=== PATIENT | female | born 1945 | race Caucasian/White ===

== ENCOUNTER 2016-11-21 15:51 | Inpatient (IN) | payer OTHER, MEDICARE ==
[~2016-11-21] VITALS: Ht 157.5 cm; Wt 47.6 kg
--- NOTE | 2016-11-21 16:58 | ED DYSPNEA/ASTHMA COMPLAINT ---
History of Present Illness General Chief Complaint: General Adult Stated Complaint: SOB Source: patient, family, old records Exam Limitations: no limitations Vital Signs & Intake/Output Vital Signs & Intake/Output Vital Signs Date Time Temp Pulse Resp B/P Pulse O2 O2 Flow FiO2 Ox Delivery Rate 11/21 1819 97.8 110 22 149/91 95 Nasal 2.0L Cannula 11/21 1803 97.0 105 20 162/75 94 Nasal 2.0L Cannula 11/21 1729 94 Nasal 2.0L Cannula 11/21 1609 92 Nasal 3.0L Cannula 11/21 1608 119 32 90 Nasal 3.0L Cannula 11/21 1559 97.3 120 22 143/83 80 Room Air Allergies Coded Allergies: NO KNOWN ALLERGIES (10/20/12) Reconcile Medications Albuterol Sulfate (Ventolin Hfa) 90 MCG HFA.AER.AD 2 PUF INH Q4-6 PRN PRN COPD (Reported) Ascorbate Calcium (Vitamin C) 500 MG TABLET 1 TAB PO DAILY SUPPLEMENT ( Reported) Budesonide/Formoterol Fumarate (Symbicort 160-4.5 Mcg Inhaler) 160 MCG-4.5 MCG/ ACTUATION HFA.AER.AD 2 PUF INH BID COPD (Reported) Calcium Carbonate/Vitamin D3 (Calcium 500 + D Tablet) (Unknown Strength) TABLET (Unknown Dose) PO DAILY SUPPLEMENT (Reported) Diltiazem HCl (Cartia Xt) 120 MG CAP.ER.24H 1 CAP PO DAILY HEART/BP (Reported ) Olanzapine 5 MG TABLET 1 TAB PO QPM MENTAL HEALTH (Reported) Tiotropium [place] (Spiriva) 18 MCG CAP.W.DEV 1 CAP INH DAILY COPD (Reported) Triage Note: PT SENT TO ER BY DR ROSE FOR LOW O2 SAT , PT PALE STATES THAT SHE HAS HAD A NON PRODUCTIVE COUGH . O2 SAT 79% ON RA. AFEBRILE Triage Nurses Notes Reviewed? yes Onset: Last week Duration: week(s):, constant, continues in ED, getting worse Timing: recent history Severity: severe Activities at Onset: rest Prior Episodes/Possible Cause: occasional episodes Modifying Factors: Improves With: rest. Worsens With: movement. Associated Symptoms: cough, loss of appetite, wheezing, weakness LMP (ages 10-50): post menopausal : No Patient currently breastfeeds: No HPI: 10 days prior to admission patient complains of nonproductive cough loss of appetite wheezing increasing weakness. During This time. She had fever chills that are now gone. Currently she denies fever chills nausea vomiting diarrhea abdominal pain chest pain headache dysuria rash bleeding Past History Travel History Traveled to [place] past 21 day No Medical History Any Pertinent Medical History? 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 No Review of Systems Review of Systems Constitutional: Reports: no symptoms. EENTM: Reports: no symptoms. Respiratory: Reports: see HPI, cough, orthopnea, wheezing. Cardiovascular: Reports: no symptoms. GI: Reports: no symptoms. Genitourinary: Reports: no symptoms. Musculoskeletal: Reports: no symptoms. Skin: Reports: no symptoms. Neurological/Psychological: Reports: no symptoms. Hematologic/Endocrine: Reports: no symptoms. Immunologic/Allergic: Reports: no symptoms. All Other Systems: Reviewed and Negative Physical Exam Physical Exam General Appearance: well developed/nourished, alert, awake, anxious, moderate distress, thin Head: atraumatic, normal appearance Eyes: Bilateral: normal appearance, PERRL, EOMI. Ears, Nose, Throat: normal pharynx, normal ENT inspection Neck: normal inspection, supple, full range of motion, no midline tenderness Respiratory: chest non-tender, quiet respiration, decreased breath sounds Cardiovascular: regular rate/rhythm, normal peripheral pulses, norml femoral pulses equa Peripheral Pulses: 4+ carotid (R), 4+ carotid (L) Gastrointestinal: normal bowel sounds, soft, non-tender, no organomegaly Extremities: normal inspection, normal capillary refill, normal range of motion, no edema Neurologic/Psych: no motor/sensory deficits, awake, alert, oriented x 3, normal gait, normal mood/affect, 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 No Severe Sepsis Present: No Septic Shock Present: No Progress Differential Diagnosis: bronchitis, CHF, COPD, pneumonia Plan of Care: Orders Procedure Date/time Status Regular Diet 11/21 D Active OXYGEN SETUP (GEN) 11/21 1801 Active Saline Lock 11/21 180 Active Admit to inpatient 11/21 180 Active Vital Signs 11/21 180 Active Activity/Ambulation 11/21 180 Active Code Status 11/21 180 Active RAPID VIRAL INFLUENZA A 11/21 165 Complete TROPONIN LEVEL 11/21 165 Complete MAGNESIUM 11/21 165 Complete COMPREHENSIVE METABOLIC PANEL 11/21 165 Complete CBC WITHOUT DIFFERENTIAL 11/21 1652 Complete EKG 11/21 165 Active Laboratory Tests 11/21/16 1755: Anion Gap 8, Estimated GFR > 60, BUN/Creatinine Ratio 16.7, Glucose 107 H, Calcium 9.0, Magnesium 1.8, Total Bilirubin 1.0, AST 34, ALT 31, Alkaline Phosphatase 84, Troponin I < 0.01, Total Protein 7.1, Albumin 4.1, Globulin 3.0, Albumin/Globulin Ratio 1.4, CBC w Diff NO MAN DIFF REQ, RBC 3.40 L, MCV 95.8, MCH 31.9 H, RDW 20.5 H, MPV 5.8 L, Gran % 55.1, Lymphocytes % 34.5, Monocytes % 10.4 H, Eosinophils % 0, Basophils % 0 L, Absolute Granulocytes 1.5, Absolute Lymphocytes 0.9 L, Absolute Monocytes 0.3, Absolute Eosinophils 0, Absolute Basophils 0, PUBS MCHC 33.3 Diagnostic Imaging: Viewed by Me: Radiology Read. Discussed w/RAD: Radiology Read. CXR Impression: no acute abnormality Initial ED EKG: normal axis, normal intervals, normal p-waves, normal QRS complex, normal sinus rhythm, no ST T wave changes Prior EKG: unchanged Rhythm Strip: normal sinus rhythm Departure Departure Disposition: STILL A PATIENT Condition: Stable Clinical Impression Primary Impression: COPD with exacerbation Secondary Impressions: Hypoxia Referrals: KRYSTAL MCGUIRE APRN (PCP/Family) Departure Forms: Customer Survey General Discharge Information Admission Note Spoke With: WILIAM ROSARIO MD Documentation of Exam: Documentation of any treatments & extenuating circumstances including Concerns Regarding Discharge (functional status, medication knowledge or non-compliance, living conditions, etc.) that warrant an admission rather than observation: Supplemental oxygen serial beta agonist nebs IV steroids serial lab exam pulmonary evaluation continuing care discharge planning Critical Care Note Critical Care Note Critical Care Time: non-applicable
[2016-11-21] MEDS ORDERED: CARTIA XT120 M1 PO (17:38)
[2016-11-21] MEDS ORDERED: SYMBICORT 16010.2 GM INH (17:38)
[2016-11-21] MEDS ORDERED: OLANZAPINE5 M2 PO (17:38)
[2016-11-21] MEDS ORDERED: VENTOLIN HFA18 GM INH (17:39)
[2016-11-21] MEDS ORDERED: CALCIUM 500 +1 EAC5 PO (17:39)
[2016-11-21] MEDS ORDERED: SPIRIVA18 MCG INH (17:39)
[2016-11-21] MEDS ORDERED: VITAMIN C500 M6 PO (17:40)
--- NOTE | 2016-11-21 17:57 | RADIOLOGY REPORT ---
EXAMINATION: XR PORTABLE CHEST CLINICAL INFORMATION: Shortness of breath. History of COPD. COMPARISON: CT chest 05/22/2016. TECHNIQUE: Portable AP view of the chest was obtained. FINDINGS: The lungs are hyperinflated, without focal airspace consolidation. No pleural effusions or pneumothoraces are identified. Cardiomediastinal contours are within normal limits. Soft tissues are unremarkable. No acute osseous abnormality is identified. IMPRESSION: Radiographic findings suggestive of underlying COPD. Otherwise, no acute pulmonary process.
[2016-11-21 18:02] LABS: ABSOLUTE BASOPHIL COUNT 0 /CUMM (0.0-0.2); ABSOLUTE EOSINOPHIL COUNT 0 /CUMM (0.0-0.7); ABSOLUTE GRANULOCYTE CT 1.5 /CUMM (1.4-6.5); ABSOLUTE LYMPH COUNT 0.9 /CUMM (1.2-3.4); ABSOLUTE MONOCYTE COUNT 0.3 /CUMM (0.10-0.60); BASOPHIL % 0 % (0.0-2.0); EOSINOPHIL % 0 % (0-5); GRANULOCYTE % 55.1 % (42.2-75.2); HEMATOCRIT 32.5 % (37-47); MEAN CORPUSCULAR HGB 31.9 PG (27.0-31.0); MEAN CORPUSCULAR HGB CONC 33.3 G/DL (33.0-37.0); MEAN CORPUSCULAR VOLUME 95.8 FL (81.0-99.0); MEAN PLATELET VOLUME 5.8 FL (7.4-10.4); RBC DISTRIBUTION WIDTH 20.5 % (11.5-14.5)
[2016-11-21 18:26] LABS: PLATELET COUNT 220 /CUMM (130-400)
[2016-11-21 18:27] LABS: WHITE BLOOD CELL COUNT 2.7 /CUMM (4.8-10.8)
--- NOTE | 2016-11-21 20:15 | History & Physical ---
KAILASH YOUSIF,ALYCE 11/21/16 2015: General Information and HPI MD Statement: I have seen and personally examined CECY HICKS and documented this H&P. The patient is a 71 year old F who presented with a patient stated chief complaint of [shortness of breath]. Source of Information: patient Exam Limitations: no limitations History of Present Illness: Patient is a 71-year-old lady who has come to the ED from Dr. Dailey's office with oxygen saturation of 79%. Patient has had 1 week of shortness of breath coughing and wheezing. Patient reports difficulty breathing with activities, accompanied by a nonproductive cough, had fevers but currently denies it. She has no chest pain or palpitation, or leg swelling. Patient previously was able to go up and down the stairs almost 3 times a day and now reports she gets short of breath when she goes from one room to the other. Patient reports loss of appetite and feeling weak. She is independent and lives at home alone with no aid. Denies headache, dizziness, nausea vomiting, abdominal pain, however reports constipation, no urinary changes. Denies shortness of breath while laying down. Hasn't had any sick contacts recently. Patient has a history of COPD not on oxygen at home and was last admitted at [facility] in 2012 for shortness of breath and cough, she has had no admissions since then. She has quit smoking in 1999 after 32 years. Allergies/Medications Allergies: Coded Allergies: NO KNOWN ALLERGIES (10/20/12) Home Med list Albuterol Sulfate (Ventolin Hfa) 90 MCG HFA.AER.AD 2 PUF INH Q4-6 PRN PRN COPD (Reported) Ascorbate Calcium (Vitamin C) 500 MG TABLET 1 TAB PO DAILY SUPPLEMENT ( Reported) Budesonide/Formoterol Fumarate (Symbicort 160-4.5 Mcg Inhaler) 160 MCG-4.5 MCG/ ACTUATION HFA.AER.AD 2 PUF INH BID COPD (Reported) Calcium Carbonate/Vitamin D3 (Calcium 500 + D Tablet) (Unknown Strength) TABLET (Unknown Dose) PO DAILY SUPPLEMENT (Reported) Diltiazem HCl (Cartia Xt) 120 MG CAP.ER.24H 1 CAP PO DAILY HEART/BP (Reported ) Olanzapine 5 MG TABLET 1 TAB PO QPM MENTAL HEALTH (Reported) Tiotropium [place] (Spiriva) 18 MCG CAP.W.DEV 1 CAP INH DAILY COPD (Reported) Past History Travel History Traveled to [place] past 21 day No Medical History Cardiovascular: hypertension Respiratory: COPD Psychiatric: schizophrenia Endocrine: hypothyroidism Blood Disorders: NONE 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 Denies: chills, fever. EENTM: Reports: no symptoms. Cardiovascular: Denies: chest pain, edema, palpitations. Respiratory: Reports: cough, short of breath, wheezing. Denies: orthopnea, sputum production. GI: Denies: abdominal pain, changes in stool. Genitourinary: Reports: no symptoms. Musculoskeletal: Reports: no symptoms. Skin: Reports: no symptoms. Neurological/Psychological: Reports: no symptoms. Hematologic/Endocrine: Reports: bruising. Exam & Diagnostic Data Last 24 Hrs of Vital Signs/I&O Vital Signs Date Time Temp Pulse Resp B/P Pulse O2 O2 Flow FiO2 Ox Delivery Rate 11/21 2300 97.5 107 20 158/86 90 Nasal 2.5L Cannula 11/21 2226 92 Nasal 2.5L Cannula 11/21 2158 100 24 160/80 93 Nasal 2.0L Cannula 11/21 1819 97.8 110 22 149/91 95 Nasal 2.0L Cannula 11/21 1803 97.0 105 20 162/75 94 Nasal 2.0L Cannula 11/21 1729 94 Nasal 2.0L Cannula 11/21 1609 92 Nasal 3.0L Cannula 11/21 1608 119 32 90 Nasal 3.0L Cannula 11/21 1559 97.3 120 22 143/83 80 Room Air Intake & Output 11/22 0800 02 0000 11/21 1600 Intake Total 340 Output Total Balance 340 Intake, IV 100 Intake, Oral 240 Patient 47.627 kg 47.627 kg Weight Physical Exam General Appearance Alert, Oriented X3, Cooperative, Mild Distress Skin No Rashes, No Breakdown, a few areas of bruising on the distal upper extremities, pinctate petechial lesions on the soft palate HEENT Atraumatic, PERRLA, EOMI, Mucous Membr. moist/pink Neck Supple Cardiovascular Regular Rate, Normal S1, Normal S2, No Murmurs Lungs decreased breath sounds, no wheezing or rhonchi, patient appears in respiratory distress and uses accessory muscles while breathing Abdomen Normal Bowel Sounds, Soft, No Tenderness Neurological Normal Speech, Strength at 5/5 X4 Ext, Normal Tone, Sensation Intact, Cranial Nerves 3-12 NL Extremities No Clubbing, No Cyanosis, No Edema, Normal Pulses, No Tenderness/ Swelling Vascular Normal Pulses, Pulses Symmetrical Last 24 Hrs of Labs/Mundo: Laboratory Tests 11/21/162123: Urine Color YEL, Urine Clarity CLEAR, Urine pH 7.0, Ur Specific [place] <= 1.005 , Urine Protein NEG, Urine Ketones TRACE H, Urine Nitrite NEG, Urine Bilirubin NEG, Urine Urobilinogen 0.2, Ur Leukocyte Esterase NEG, Ur Microscopic EXAM NOT REQUIRED, Urine Hemoglobin NEG, Urine Glucose NEG 11/21/162123: Urine Osmolality 136 L, Ur Random Creatinine 23.4, Ur Random Sodium 14 L, Ur Random Potassium 15.5, Fraction Sodium Excret 0.3 11/21/16 1755: Anion Gap 8, Estimated GFR > 60, BUN/Creatinine Ratio 16.7, Glucose 107 H, Serum Osmolality 264 L, Calcium 9.0, Magnesium 1.8, Total Bilirubin 1.0, AST 34 , ALT 31, Alkaline Phosphatase 84, Troponin I < 0.01, Total Protein 7.1, Albumin 4.1, Globulin 3.0, Albumin/Globulin Ratio 1.4, CBC w Diff NO MAN DIFF REQ, RBC 3.40 L, MCV 95.8, MCH 31.9 H, RDW 20.5 H, MPV 5.8 L, Gran % 55.1, Lymphocytes % 34.5, Monocytes % 10.4 H, Eosinophils % 0, Basophils % 0 L, Absolute Granulocytes 1.5, Absolute Lymphocytes 0.9 L, Absolute Monocytes 0.3, Absolute Eosinophils 0, Absolute Basophils 0, PUBS MCHC 33.3 Assessment/Plan Assessment: Patient is a 71 year old lady with a PMH of COPD, schizophrenia, borderline hypertension, who is sent from Dr. Dailey's office due to hypoxia, shortness of breath and cough. she was found to have SO2 of 79% in the office and was sent to the ED. Assessment and plan: Shortness of breath, most likely COPD exacerbation Patient has a history of COPD not on home oxygen follows up with Dr. Dailey every 6 months. Uses Symbicort and Spiriva and Ventolin inhalers at home. CXray shows no acute pulmonary process. Patient is afebrile and WBC 2.7 (chronic and stable leukopenia) Of note, she has a history of intubation in 1999 and being on ventilator for 10 days. * O2 supplementation to keep O2 saturation above 92% * TRC nebs * Continue home inhalers including Symbicort and Spiriva and Ventolin * IV Solu-Medrol * Hold off on antibiotics for now * Sputum culture Hyponatremia Serum osmolality 264 (L) consistent with hypotonic hyponatremia. She appears mildly hypovolemic. urine random sodium 14 (L), FeNa 0.3. Urine osmolality 136 ( L). Etiologies related to our patient include: Volume depletion, hypothyroidism, SIADH (patient takes olanzapine which can cause SIADH). * IV normal saline * Recheck BEP in a.m. * Checked TSH and free T4 Leukopenia Chronic and stable * Monitor WBC count Schizophrenia Currently asymptomatic. * Continue olanzapine * consider consulting psych for switching to another agent if hyponatremia persists History of Hyperthyroidism Status post radiation for diffuse thyroid hyperplasia. currently states that she is euthyroid. * TSH and free T4 Osteoporosis * Continue vitamin D and calcium supplements DVT prophylaxis * Subcutaneous Lovenox Tylenol for mild pain Regular diet Full code As Ranked By This Provider Problem List: 1. COPD with exacerbation 2. Hypoxia 3. Schizophrenia Core Measures/Miscellaneous Acute Coronary Syndrome ACS Diagnosis: No Cerebrovascular Accident CVA/TIA Diagnosis: No Congestive Heart Failure CHF Diagnosis: No Venous Thromboembolism VTE Risk Factors: Acute medical illness, Age > 40 VTE Prophylaxis Ordered Inpt: [facility] d/t: No contraindications No VTE Pharm Prophylaxis d/t: No contraindications VTE Diagnosis: No VTE Type: NONE VTE Confirmed by (Test): NONE Severe Sepsis Severe Sepsis Present: No Septic Shock Septic Shock Present: No Miscellaneous Documentation Attending Case Discussed With: CHRIS [facility]AV[facility]RIA [facility] Primary Care Physician: KRYSTAL MCGUIRE APRN Patient sees these Specialists Dr. Dailey, pulmonary Level of Patient Care: General Medicine MARGARITO HOLBROOK 11/21/162027: Resident Review Statement Resident Statement: examined this patient, discussed with video production intern, agreed with video production intern Other Findings: Patient is 71-year-old female with past medical history significant for non-oxygen dependent COPD, schizophrenia, history of intubation in 1999, hyperthyroidism status post radiation not on any medication, osteoporosis pain from doctor's office due to her hypoxia and cough with shortness of breath and wheezing for 4-5 days. Patient endorses that she was very short of breath lately and was not able to move around the house without getting short of breath when she was at baseline was able to take flight of steps without getting short of breath. She also admitted for having wheezing and being very tired. She denied fever, chills, headache, chest pressure, chest pain, nausea, vomiting or any urinary complaints. She has some constipation at baseline and her appetite was poor and was not eating and drinking enough. She drinks 2 beers daily and last drink was yesterday. She is compliant with her medications and was using her inhalers without any significant relief. Vital signs admission vitals temperature 97.3, pulse 120, respiratory rate 22, blood pressure 143/83 and she was saturating 80% on room air later on was saturating 95% on 2 L of nasal cannula. Initial workup showed WBC count 2.7, hemoglobin 10.8, hematocrit 32.5, platelet count 220, sodium 127, potassium 3.9, chloride 85, carbon dioxide 34, BU and 10, creatinine 0.6, glucose 107, Serum osmolality 264, urine osmolarity 136, urine random sodium 14, fraction sodium excretion 0.3 Chest radiograph it didn't show any evidence of infiltrate or new acute cardiopulmonary pathology EKG showed tachycardia, sinus rhythm with no acute ST-T wave changes Physical examination Alert and oriented 3 in mild distress using accessory muscles Head atraumatic Neck supple Chest auscultation showed restricted air movement Heart S1-S2 normal. No acute sounds Abdomen soft no organomegaly Extremities shows no edema or cyanosis Assessment and plan 71-year-old female with past medical history significant for non- oxygen dependent COPD, hyPERthyroidism status post radiation, schizophrenia came with hypoxia and worsening shortness of breath most likely secondary to COPD exacerbation We'll admit patient on general medical floor and will take it for the following problems Problem #1 hypoxia with worsening shortness of breath most likely due to COPD extirpation no radiological evidence of pneumonia Vital signs every shift Supplemental oxygen to keep oxygen saturation more than 90% We will trend WBCs has she has leukopenia at baseline of unknown significance TRC and embolization IV Solu-Medrol 40 mg every [address] Dailey consultation in the morning Problem #2 hyponatremia most likely hypovolemic hyponatremia due to dehydration/ poor oral intake Normal saline at rate 150 miles per hour and we will recheck labs in the morning Problem #3 history of schizophrenia We will continue her home medications History of hypertension We will continue her home dose of diltiazem Pharmacological DVT prophylaxis Regular diet Patient is full code DEON YOUSIF, [facility] 11/21/162057: Attending MD Review Statement Attending Statement Attending MD Statement: examined this patient, discuss w/resident/PA/COOLING ROOM ATTENDANT Attending Assessment/Plan: 71 yo F with h/o COPD with h/o intubation (1999), schizophrenia, hypothyroidism s/p radiation to diffuse thyroid hyperplasia, osteoporosis, HTN, tachycardia, is sent in from Dr. Martin's office for evaluation of hypoxia (sats 79% on RA). Patient reports symptoms of dry cough and wheezing since about 10 days, with no relief with OTC cough syrup or inhalers. Exertional dyspnea+. Weakness and loss of appetite+. No sick contacts. Received flu and pneumonia vaccine last year. Vitals: afebrile, tachycardic, BP 158/86, sats 80% RA --> 92% on 3L. Exam: AAO, in mild respiratory distress, able tos peak in full sentences, Dry mucous membranes, Neck supple, Chest b/l reduced air entry with scattered expiratory wheeze, Heart S1S2 tachycardic. Extremities no edema. Labs: WBC 2.7, Na 127 ( baseline 138-140), bicarb 34, trop neg, EKG: Sinus tachycardia. CXR: COPD, no pneumonia. PFT (2010): severe obstructive lung disease with airtrapping and hyperinflation. Flu swab negative. 1. Acute hypoxic respiratory failure, COPD exacerbation. GM admit, TRC nebs, sputum culture, IV steroids, no need for azithromycin. Keep O2 sats > 92%. Pulm consult Dr. Martin. 2. Hyponatremia likely hypovolemic, however cannot rule out SIADH in the setting of medication use (olanzapine). Check urine and serum osmolality, urine lytes. Gentle hydration, trend sodium. DVT ppx Lovenox. Full code.
--- NOTE | 2016-11-21 20:58 | Admission Certification ---
Admission Certification Certification Statement - As attending physician, I certify that at the time of - admission, based on clinical presentation, severity of - symptoms, need for further diagnostic testing and - therapeutic interventions, and risk of adverse outcomes - without in-hospital treatment, in my clinical assessment, - this patient requires an acute hospital stay for a minimum - of two nights or longer. I have also considered psychsocial - factors such as support system, advanced age, financial - issues, cognitive issues, and failed out-patient treatments, - past re-admission history, safety of patient, and lack of - compliance as applicable. Specific rationale supporting this admission is: Acute hypoxic respiratory failure, COPD exacerbation.
[2016-11-21 23:00] VITALS: BP 158/86
[2016-11-22 07:32] VITALS: BP 120/70
--- NOTE | 2016-11-22 08:08 | Cons- Pulmonary ---
General Information and HPI Consulting Request Date of Consult: 11/22/16 Requested By: bismark Reason for Consult: Hypoxic respiratory failure History of Present Illness: Patient is 71-year-old woman with severe COPD admitted with hypoxic respiratory failure and increasing shortness of breath due to COPD exacerbation. Patient has had increasing congestion and cough shortness breath over the past week without fevers or chills. In the office yesterday she was hypoxic and admitted for exacerbation of COPD hypoxic respiratory failure. She feels improved this morning on supplemental nasal oxygen. Allergies/Medications Allergies: Coded Allergies: NO KNOWN ALLERGIES (10/20/12) Home Med List: Albuterol Sulfate (Ventolin Hfa) 90 MCG HFA.AER.AD 2 PUF INH Q4-6 PRN PRN COPD (Reported) Ascorbate Calcium (Vitamin C) 500 MG TABLET 1 TAB PO DAILY SUPPLEMENT ( Reported) Budesonide/Formoterol Fumarate (Symbicort 160-4.5 Mcg Inhaler) 160 MCG-4.5 MCG/ ACTUATION HFA.AER.AD 2 PUF INH BID COPD (Reported) Calcium Carbonate/Vitamin D3 (Calcium 500 + D Tablet) (Unknown Strength) TABLET (Unknown Dose) PO DAILY SUPPLEMENT (Reported) Diltiazem HCl (Cartia Xt) 120 MG CAP.ER.24H 1 CAP PO DAILY HEART/BP (Reported ) Olanzapine 5 MG TABLET 1 TAB PO QPM MENTAL HEALTH (Reported) Tiotropium [place] (Spiriva) 18 MCG CAP.W.DEV 1 CAP INH DAILY COPD (Reported) Review of Systems Review of Systems Constitutional: Denies: chills, fever. Cardiovascular: Denies: chest pain, peripheral edema. Respiratory: Reports: cough, short of breath. Denies: hemoptysis, sputum production. GI: Denies: abdominal pain, diarrhea, melena. Genitourinary: Denies: dysuria. 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 Home Services at Home: None Smoking Status: Former Smoker (quit in 1999) ETOH Use: 2 beers a day Illicit Drug Use: denies illicit drug use Exam & Diagnostic Data Last 24 Hrs of Vital Signs/I&O Vital Signs Date Time Temp Pulse Resp B/P Pulse O2 O2 Flow FiO2 Ox Delivery Rate 11/22 0732 97.7 102 20 120/70 94 Nasal 3.0L Cannula 11/22 0000 Nasal 2.5L Cannula 11/21 2300 97.5 107 20 158/86 90 Nasal 2.5L Cannula 11/21 2226 92 Nasal 2.5L Cannula 11/21 2158 100 24 160/80 93 Nasal 2.0L Cannula 11/21 1819 97.8 110 22 149/91 95 Nasal 2.0L Cannula 11/21 1803 97.0 105 20 162/75 94 Nasal 2.0L Cannula 11/21 1729 94 Nasal 2.0L Cannula 11/21 1609 92 Nasal 3.0L Cannula 11/21 1608 119 32 90 Nasal 3.0L Cannula 11/21 1559 97.3 120 22 143/83 80 Room Air Intake & Output 11/22 1600 11/22 0800 11/22 0000 Intake Total 1000 460 Output Total Balance 1000 460 Intake, IV 800 100 Intake, Oral 200 360 Patient 105 lb Weight Patient is comfortable oxygen saturation on 3 L 94% exam for chest shows diminished breath sounds there are no wheezes cardiac exam shows regular S1 and S2 without murmurs abdominal exam soft nontender extremities without edema Last 48 Hrs of Labs/Mundo: Laboratory Tests 11/22/16 0640: Sodium Pending, Potassium Pending, Chloride Pending, Carbon Dioxide Pending, Anion Gap Pending, BUN Pending, Creatinine Pending, BUN/Creatinine Ratio Pending , CBC w Diff Pending, WBC Pending, RBC Pending, Hgb Pending, Hct Pending, MCV Pending, MCH Pending, RDW Pending, Plt Count Pending, MPV Pending, PUBS MCHC Pending 11/21/162123: Urine Color YEL, Urine Clarity CLEAR, Urine pH 7.0, Ur Specific [place] <= 1.005 , Urine Protein NEG, Urine Ketones TRACE H, Urine Nitrite NEG, Urine Bilirubin NEG, Urine Urobilinogen 0.2, Ur Leukocyte Esterase NEG, Ur Microscopic EXAM NOT REQUIRED, Urine Hemoglobin NEG, Urine Glucose NEG 11/21/162123: Urine Osmolality 136 L, Ur Random Creatinine 23.4, Ur Random Sodium 14 L, Ur Random Potassium 15.5, Fraction Sodium Excret 0.3 11/21/16 1755: Anion Gap 8, Estimated GFR > 60, BUN/Creatinine Ratio 16.7, Glucose 107 H, Serum Osmolality 264 L, Calcium 9.0, Magnesium 1.8, Total Bilirubin 1.0, AST 34 , ALT 31, Alkaline Phosphatase 84, Troponin I < 0.01, Total Protein 7.1, Albumin 4.1, Globulin 3.0, Albumin/Globulin Ratio 1.4, CBC w Diff NO MAN DIFF REQ, RBC 3.40 L, MCV 95.8, MCH 31.9 H, RDW 20.5 H, MPV 5.8 L, Gran % 55.1, Lymphocytes % 34.5, Monocytes % 10.4 H, Eosinophils % 0, Basophils % 0 L, Absolute Granulocytes 1.5, Absolute Lymphocytes 0.9 L, Absolute Monocytes 0.3, Absolute Eosinophils 0, Absolute Basophils 0, PUBS MCHC 33.3 Assessment/Plan Impression/Plan: 71-year-old with severe COPD presents with exacerbation and hypoxic respiratory failure which appears to be improving. Her lung cancer screening CAT scan of May 2016 showed a nodule for which follow-up CT scan is required. Recommendations: Continue IV Solu-Medrol nebs and supplemental oxygen. Would hope to transition to by mouth prednisone tomorrow with expectation that she will likely need home O2. Repeat CT scan of the chest. With elevated bicarbonate would obtain arterial blood gas once oxygen has been titrated Consult Acknowledgment - Thank you for your consult request.
[2016-11-22 08:21] LABS: HEMATOCRIT 30.5 % (37-47); MEAN CORPUSCULAR HGB 32.1 PG (27.0-31.0); MEAN CORPUSCULAR HGB CONC 33.2 G/DL (33.0-37.0); MEAN CORPUSCULAR VOLUME 96.7 FL (81.0-99.0); MEAN PLATELET VOLUME 6.1 FL (7.4-10.4); PLATELET COUNT 197 /CUMM (130-400); RBC DISTRIBUTION WIDTH 20.6 % (11.5-14.5); RED BLOOD CELL CT 3.16 /CUMM (4.20-5.40)
--- NOTE | 2016-11-22 12:55 | PN- Housestaff ---
Subjective Follow-up For: Acute exacerbation of COPD Subjective: She is seen and examined bedside. She states that her breathing is much better compared to yesterday. She does not endorse any additional acute complaints including chest pain, palpitation, fever, chills, nausea, vomiting, increased cough, abdominal pain or dysuria. No acute overnight event reported by nursing staff. O2 was titrated from 3-2 and patient tolerated with above goal saturation levels. Review of Systems Constitutional: Reports: no symptoms. Objective Last 24 Hrs of Vital Signs/I&O Vital Signs Date Time Temp Pulse Resp B/P Pulse O2 O2 Flow FiO2 Ox Delivery Rate 11/23 612 98.5 91 22 118/76 94 Nasal Cannula 11/23 0000 94 Nasal 1.0L Cannula 11/22 2132 98.9 11/22 2130 95.7 98 22 122/80 94 Nasal 1.0L Cannula 11/22 1835 92 Nasal 1.0L Cannula 11/22 1600 Nasal 1.0L Cannula 11/22 1434 97.4 98 20 120/80 91 11/22 1137 Nasal 2.0L Cannula 11/22 0800 95 Nasal 2.0L Cannula 11/22 0732 97.7 102 20 120/70 94 Nasal 3.0L Cannula Intake & Output 11/23 0800 11/23 0000 11/22 1600 Intake Total 150 800 500 Output Total Balance 150 800 500 Intake, Oral 150 800 500 Number 1 Bowel Movements Patient 47.627 kg Weight Physical Exam General Appearance: Alert, Oriented X3, Cooperative Skin: No Significant Lesion Lungs: VERY FAINT WHEEZING BILATERALLY Abdomen: Normal Bowel Sounds, Soft, No Tenderness Neurological: Normal Speech, Strength at 5/5 X4 Ext, Normal Tone, Sensation Intact Extremities: No Clubbing, No Cyanosis, No Edema Assessment/Plan Assessment: Is a 71-year-old pleasant lady with a past medical history of moderate to severe COPD is presenting with acute respiratory failure and symptoms and signs suggestive of acute exacerbation of COPD (progressive dyspnea, increased cough, sputum production). Assessment and plan #Acute respiratory failure This is in the setting of exacerbation of COPD. Patient most likely will require home oxygen on discharge. O2 was titrated down from 3-2 and patient was able to tolerate well. We'll assess ambulation sats level on discharge date to determine O2 home levels. Plan Continue to supplementation with goals of >90% sat #Acute exacerbation of COPD Patient's respiratory status is progressively getting better. CT chest was unremarkable for any acute pathology other than signs of COPD. Plan Will switch on a Medrol IV to oral meds today. We'll continue her azithromycin 500 mg daily. #Leukopenia Patient does endorse a history of leukopenia however precipitous drop froM wbc 3 to 1 is concerning. Possible etiology include drug-induced and bone marrow pathology. Plan Will switch patient to neutropenic precaution. Even though patient is currently not neutropenic, in the setting of acute exacerbation of COPD, and a significant drop in the white count, it was felt that we should proceed with neutropenic precautions for at least 24 hours. Also obtain hematology consultation #Hyponatremia Most likely was hypovolemic hyponatremia which is now resolving. Problem List: 1. COPD with exacerbation 2. Neutropenia 3. Hypoxia Pain Ratin Pain Location: none Pain Goal: Remain pain free Pain Plan: Acetaminophen for mild pain Oxycodone for moderate pain Tomorrow's Labs & Rationales: BEP-trending hyponatremia CBC-trending leukopenia
[2016-11-22 14:34] VITALS: BP 120/80
--- NOTE | 2016-11-22 14:54 | CT SCAN REPORT ---
EXAMINATION: CT CHEST WITHOUT CONTRAST CLINICAL INFORMATION: Acute hypoxic respiratory failure. COPD. COMPARISON: Chest x-ray 11/21/[address] scan of the chest 05/22/2016. TECHNIQUE: Multidetector volumetric CT imaging of the chest was done. Axial MIP volume rendering provided. Sagittal and coronal reformatted images were obtained. 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 LUNGS: The lung dahl are well expanded bilaterally, and display [id number] centrilobular emphysematous changes. The right bronchus intermedius is unchanged. There are linear areas of opacity at the bases consistent with atelectasis. There has been interval decrease in the nodule in the lingula, now measuring 0.3 cm (image 233/520). The 0.2 cm nodule in the right upper lobe (image 82/520) is unchanged. The cystic area with thickened orellana and noncalcified 0.3 cm nodule in the left upper lobe is unchanged (image 149/520). MEDIASTINUM: The visualized thyroid gland is unremarkable. There are atheromatous calcifications of the aorta. The root of the aorta has a caliber of 3.7 cm. There is no mediastinal or hilar lymphadenopathy; there are small lymph nodes which appear relatively stable. There is no pericardial effusion. PLEURA: There are no pericardial effusions and there is no pleural thickening. AXILLA: There is no axillary lymphadenopathy and the chest wall appears normal. UPPER ABDOMEN: There has been no interval change in the cystic area in the left lobe of the liver in segment 4. There is a 1.9 cm cyst toward the upper pole of the left kidney, unchanged. The left adrenal gland nodule is unchanged, with Hounsfield units of 9.8. There are multiple calcifications in the pancreas. These appear unchanged. OSSEOUS STRUCTURES: There are multilevel degenerative changes in the spine. There are no suspicious lucent or sclerotic foci. IMPRESSION: 1. The study redemonstrates the changes consistent with COPD in both lungs. 2. There is been slight interval decrease in the size of the nodule in the lingula compared to the prior study. 3. The other lung nodules appear relatively stable. 4. Stable areas of low attenuation in the liver and left kidney consistent with cysts. 5. Stable nodularity in the left adrenal gland with Hounsfield units consistent with an adenoma. 6. Pancreatic calcifications are consistent with chronic pancreatitis, demonstrated on prior imaging.
--- NOTE | 2016-11-22 15:46 | PN- Att Addend ---
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 d/w pt the care plan. COPD exacerbation- cont current management, Added zithromax given the patients neutropenia with ANC of 620 and being on steroids. Neutropenia with low ANC- will get hemaotology consult and will put patient on neutropenic precautions. Hypoxic respiratory failure secondary to copd exacerbation. will cont current managemetn. d/w pt the care plan.
--- NOTE | 2016-11-22 17:20 | Cons- Hematology ---
General Information and HPI Consulting Request Date of Consult: 11/22/16 Requested By: MURPHY GALLEGOS MD Reason for Consult: Neutropenia Source of Information: patient, old records Exam Limitations: no limitations History of Present Illness: Ms. Zimmerman is a 71-year-old female with with COPD and schizophrenia on olanzapine who presented to the hospital after noted to be hypoxic (O2 of 79%) in Dr. Nuñze's office. She has been having worsening dyspnea and coughing for the past 1 week. Her cough is nonproductive. She has not had any fever or chills. She has been more weak recently. She denies any new pain. She has no dizziness or headaches. She denies any nausea or vomiting. She denies any significant sick contact. Since admission, she has been started on oxygen and Solu-Medrol. She was given IVF for hyponatremia. She was continued on her home inhaler. She was started on azithromycin. On admission, she had a WBC of 2.7. This has been relatively stable for her. Her WBC decreased to 1.0 this morning. She did get fluid on admission. She states she has had low WBC prior. Of note, she has severe schizophrenia and is on olanzapine. Allergies/Medications Allergies: Coded Allergies: NO KNOWN ALLERGIES (10/20/12) Home Med List: Albuterol Sulfate (Ventolin Hfa) 90 MCG HFA.AER.AD 2 PUF INH Q4-6 PRN PRN COPD (Reported) Ascorbate Calcium (Vitamin C) 500 MG TABLET 1 TAB PO DAILY SUPPLEMENT ( Reported) Budesonide/Formoterol Fumarate (Symbicort 160-4.5 Mcg Inhaler) 160 MCG-4.5 MCG/ ACTUATION HFA.AER.AD 2 PUF INH BID COPD (Reported) Calcium Carbonate/Vitamin D3 (Calcium 500 + D Tablet) (Unknown Strength) TABLET (Unknown Dose) PO DAILY SUPPLEMENT (Reported) Diltiazem HCl (Cartia Xt) 120 MG CAP.ER.24H 1 CAP PO DAILY HEART/BP (Reported ) Olanzapine 5 MG TABLET 1 TAB PO QPM MENTAL HEALTH (Reported) Tiotropium [place] (Spiriva) 18 MCG CAP.W.DEV 1 CAP INH DAILY COPD (Reported) Current Medications: Current Medications Sig/Megan Start time Last Medication Dose Route Stop Time Status Admin Acetaminophen 650 MG Q6P PRN 11/21 2300 AC PO Albuterol Sulfate 3 ML Q4H PRN 11/22 1200 AC INH Albuterol Sulfate 2 PUF Q4-6 PRN PRN 11/21 2315 AC INH Azithromycin 500 MG DAILY 11/22 1148 AC 11/22 PO 11/24 1001 1303 Azithromycin 500 MG ONCE ONE 11/21 2100 CAN Dextrose/Water 250 ML IV 11/21 2159 Budesonide/ 2 PUF BID 11/21 2304 AC 11/22 Formoterol Fumarate INH 0922 Diltiazem HCl 120 MG DAILY 11/22 1000 AC 11/22 PO 0922 Enoxaparin Sodium 40 MG DAILY 11/22 1000 AC 11/22 SC 0921 Ibuprofen 600 MG Q6P PRN 11/21 2300 AC PO Melatonin 5 MG AT BEDTIME 11/22 2200 DC PO Melatonin 5 MG AT BEDTIME 11/22 0045 AC 11/22 PO 0039 Methylprednisolone 40 MG Q8 11/22 0600 AC 11/22 IV 1303 Methylprednisolone 0 .STK-MED ONE 11/21 1800 DC .ROUTE Olanzapine 5 MG QPM 11/22 2200 DC PO Olanzapine 5 MG QPM 11/21 2330 AC 11/22 PO 0006 Oxycodone HCl 10 MG Q6P PRN 11/21 2300 AC PO Patient Medication 1 ED .STK-MED ONE 11/22 1401 DC Teaching ED 11/22 1402 Senna/Docusate Sodium 2 TAB DAILY PRN 11/21 2315 AC PO Sodium Chloride 1,000 ML Q10H 11/21 2115 DC 11/21 IV 11/22 0714 2135 Tiotropium [place] 1 PUF DAILY 11/22 1000 AC 11/22 INH 0922 Review of Systems Review of Systems Constitutional: Denies: chills, fever. Cardiovascular: Reports: orthopena. Denies: chest pain, edema, syncope. Respiratory: Reports: cough, short of breath, wheezing. Denies: hemoptysis, sputum production, stridor. GI: Denies: abdominal pain, constipation, diarrhea, bloody stool, vomiting. Genitourinary: Denies: dysuria. Musculoskeletal: Denies: back pain, neck pain. Skin: Denies: rash. Neurological/Psychological: Denies: anxiety, confusion. Hematologic/Endocrine: Denies: bruising, bleeding. Immunologic/Allergic: Denies: splenectomy, lymphadenopathy. 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 Home Services at Home: None Smoking Status: Former Smoker (quit in 1999) ETOH Use: 2 beers a day Illicit Drug Use: denies illicit drug use Exam & Diagnostic Data Vital Signs and I&O Vital Signs Date Time Temp Pulse Resp B/P Pulse O2 O2 Flow FiO2 Ox Delivery Rate 11/22 1434 97.4 98 20 120/80 91 11/22 1137 Nasal 2.0L Cannula 11/22 0800 95 Nasal 2.0L Cannula 11/22 0732 97.7 102 20 120/70 94 Nasal 3.0L Cannula 11/22 0000 Nasal 2.5L Cannula 11/21 2300 97.5 107 20 158/86 90 Nasal 2.5L Cannula 11/21 2226 92 Nasal 2.5L Cannula 11/21 2158 100 24 160/80 93 Nasal 2.0L Cannula 11/21 1819 97.8 110 22 149/91 95 Nasal 2.0L Cannula 11/21 1803 97.0 105 20 162/75 94 Nasal 2.0L Cannula 11/21 1729 94 Nasal 2.0L Cannula Intake & Output 11/22 1600 08 0800 11/22 0000 Intake Total 500 1000 460 Output Total Balance 500 1000 460 Intake, IV 800 100 Intake, Oral 500 200 360 Number 1 Bowel Movements Patient 47.627 kg 47.627 kg Weight Physical Exam General Appearance: well developed/nourished, no apparent distress, alert, awake , comfortable Head: atraumatic, normal appearance Eyes: Bilateral: PERRL. Ears, Nose, Throat: normal pharynx, on NC Neck: normal inspection, supple Respiratory: chest non-tender, quiet respiration, decreased breath sounds (at bases) Cardiovascular: normal peripheral pulses, tachycardia Gastrointestinal: normal bowel sounds, soft, non-tender, no organomegaly Back: normal inspection Extremities: normal inspection, no edema Neurologic/Psych: awake, alert, oriented x 3 Cranial Nerves: normal hearing, normal speech Skin: warm/dry Lymphatic: no anterior cervical rubia Last 48 Hours of Lab Results: Laboratory Tests 11/22 11/21 0640 2124 Chemistry Sodium (137 - 145 mmol/L) 132 L Potassium (3.5 - 5.1 mmol/L) 4.3 Chloride (98 - 107 mmol/L) 94 L Carbon Dioxide (22 - 30 mmol/L) 30 Anion Gap (5 - 16) 7 BUN (7 - 17 mg/dL) 6 L Creatinine (0.5 - 1.0 mg/dL) 0.5 Estimated GFR (>60 ml/min) > 60 BUN/Creatinine Ratio (7 - 25 %) 12.0 Hematology CBC w Diff MAN DIFF ORDERED WBC (4.8 - 10.8 /CUMM) 1.0 *L RBC (4.20 - 5.40 /CUMM) 3.16 L Hgb (12.0 - 16.0 G/DL) 10.1 L Hct (37 - 47 %) 30.5 L MCV (81.0 - 99.0 FL) 96.7 MCH (27.0 - 31.0 PG) 32.1 H RDW (11.5 - 14.5 %) 20.6 H Plt Count (130 - 400 /CUMM) 197 MPV (7.4 - 10.4 FL) 6.1 L Segmented Neutrophils (42.2 - 75.2 %) 62 Lymphocytes (20.5 - 51.1 %) 36 Monocytes (1.7 - 9.3 %) 2 Platelet Estimate (ADEQUATE) ADEQUATE Polychromasia 2+ Hypochromic-Microcytic 1+ Poikilocytosis 1+ Anisocytosis 2+ PUBS MCHC (33.0 - 37.0 G/DL) 33.2 Urines Urine Color (YEL,AMB,STR) YEL Urine Clarity (CLEAR) CLEAR Urine pH (5.0 - 8.0) 7.0 Ur Specific [place] (1.001 - 1.035) <= 1.005 Urine Protein (NEG,<30 MG/DL) NEG Urine Ketones (NEG) TRACE H Urine Nitrite (NEG) NEG Urine Bilirubin (NEG) NEG Urine Urobilinogen (0.1 - 1.0 EU/dl) 0.2 Ur Leukocyte Esterase (NEG) NEG Ur Microscopic EXAM NOT REQUIRED Urine Hemoglobin (NEG) NEG Urine Glucose (N MG/DL) NEG 11/21 11/21 2124 1755 Chemistry Sodium (137 - 145 mmol/L) 127 L Potassium (3.5 - 5.1 mmol/L) 3.9 Chloride (98 - 107 mmol/L) 85 L Carbon Dioxide (22 - 30 mmol/L) 34 H Anion Gap (5 - 16) 8 BUN (7 - 17 mg/dL) 10 Creatinine (0.5 - 1.0 mg/dL) 0.6 Estimated GFR (>60 ml/min) > 60 BUN/Creatinine Ratio (7 - 25 %) 16.7 Glucose (65 - 99 mg/dL) 107 H Serum Osmolality (285 - 295 MOSM/KG) 264 L Calcium (8.4 - 10.2 mg/dL) 9.0 Magnesium (1.6 - 2.3 mg/dL) 1.8 Total Bilirubin (0.2 - 1.3 mg/dL) 1.0 AST (14 - 36 U/L) 34 ALT (9 - 52 U/L) 31 Alkaline Phosphatase (<127 U/L) 84 Troponin I (< 0.11 ng/ml) < 0.01 Total Protein (6.3 - 8.2 g/dL) 7.1 Albumin (3.5 - 5.0 g/dL) 4.1 Globulin (1.9 - 4.2 gm/dL) 3.0 Albumin/Globulin Ratio (1.1 - 2.2 %) 1.4 Hematology CBC w Diff NO MAN DIFF REQ WBC (4.8 - 10.8 /CUMM) 2.7 L RBC (4.20 - 5.40 /CUMM) 3.40 L Hgb (12.0 - 16.0 G/DL) 10.8 L Hct (37 - 47 %) 32.5 L MCV (81.0 - 99.0 FL) 95.8 MCH (27.0 - 31.0 PG) 31.9 H RDW (11.5 - 14.5 %) 20.5 H Plt Count (130 - 400 /CUMM) 220 MPV (7.4 - 10.4 FL) 5.8 L Gran % (42.2 - 75.2 %) 55.1 Lymphocytes % (20.5 - 51.1 %) 34.5 Monocytes % (1.7 - 9.3 %) 10.4 H Eosinophils % (0 - 5 %) 0 Basophils % (0.0 - 2.0 %) 0 L Absolute Granulocytes (1.4 - 6.5 /CUMM) 1.5 Absolute Lymphocytes (1.2 - 3.4 /CUMM) 0.9 L Absolute Monocytes (0.10 - 0.60 /CUMM) 0.3 Absolute Eosinophils (0.0 - 0.7 /CUMM) 0 Absolute Basophils (0.0 - 0.2 /CUMM) 0 PUBS MCHC (33.0 - 37.0 G/DL) 33.3 Urines Urine Osmolality (300 - 1000 MOSM/KG) 136 L Ur Random Creatinine (mg/dL) 23.4 Ur Random Sodium (30 - 90 mmol/L) 14 L Ur Random Potassium (mmol/L) 15.5 Fraction Sodium Excret (<1% %) 0.3 Imaging/Other Studies: Chest CT 11/22/2016: 1. The study redemonstrates the changes consistent with COPD in both lungs. 2. There is been slight interval decrease in the size of the nodule in the lingula compared to the prior study. 3. The other lung nodules appear relatively stable. 4. Stable areas of low attenuation in the liver and left kidney consistent with cysts. 5. Stable nodularity in the left adrenal gland with Hounsfield units consistent with an adenoma. 6. Pancreatic calcifications are consistent with chronic pancreatitis, demonstrated on prior imaging. Assessment/Plan Assessment: Ms. Zimmerman is a 71-year-old female with COPD and schizophrenia who presents to the hospital with likely COPD exacerbation. She is now on oxygen, steroid, and antibiotics. She was noted to have a leukopenia on admission but was relatively stable since December 2015. She was noted to have worsening ANC this morning with WBC of 1.0. One of the most common causes of neutropenia is medication. Olanzapine, like clozapine, has the potential to cause agranulocytosis. This medication has been stopped. The use of olanzapine is likely the etiology for her worsening neutropenia. Viral infectiou may also cause this worsening leukopenia. I would continue to hold olanzapine and see how the patient's CBC changes. She will likely need psychiatry input into changing this medication given her schizophrenia history. I would hold off on GCSF support until fever or persistent severe neutropenia. Recommendations: 1. Hold olanzapine 2. Consult psychiatry for replacement of her olanzapine 3. Monitor ANC 4. No need for filgastrim at the moment Problem List: 1. Schizophrenia 2. COPD with exacerbation 3. Neutropenia Other Findings/Comments: Please call [phone] with any questions or concerns. Consult Acknowledgment - Thank you for your consult request.
[2016-11-22 21:30] VITALS: BP 122/80
[2016-11-23 06:13] VITALS: BP 118/76
--- NOTE | 2016-11-23 08:34 | PN- Pulmonary ---
Subjective HPI/Critical Care Issues: Patient shortness breath is markedly improved Objective Current Medications: Current Medications Sig/Megan Start time Last Medication Dose Route Stop Time Status Admin Acetaminophen 650 MG Q6P PRN 11/21 2300 AC PO Albuterol Sulfate 3 ML Q4H PRN 11/22 1200 AC INH Albuterol Sulfate 2 PUF Q4-6 PRN PRN 11/21 2315 AC INH Azithromycin 500 MG DAILY 11/22 1148 AC 11/22 PO 11/24 1001 1303 Budesonide/ 2 PUF BID 11/21 2304 AC 11/22 Formoterol Fumarate INH 2300 Diltiazem HCl 120 MG DAILY 11/22 1000 AC 11/22 PO 0922 Enoxaparin Sodium 40 MG DAILY 11/22 1000 AC 11/22 SC 0921 Ibuprofen 600 MG Q6P PRN 11/21 2300 AC PO Melatonin 5 MG AT BEDTIME 11/22 0045 AC 11/22 PO 2157 Methylprednisolone 40 MG Q8 11/22 0600 DC 11/23 IV 0542 Olanzapine 5 MG QPM 11/21 2330 DC 11/22 PO 0006 Oxycodone HCl 10 MG Q6P PRN 11/21 2300 AC PO Patient Medication 1 ED .STK-MED ONE 11/22 1401 NE Teaching ED 11/22 1402 Prednisone 40 MG DAILY 11/23 1000 AC PO Senna/Docusate Sodium 2 TAB DAILY PRN 11/21 2315 AC PO Tiotropium [place] 1 PUF DAILY 11/22 1000 AC 11/22 INH 0922 Vital Signs & I&O Last 24 Hrs of Vitals and I&O: Vital Signs Date Time Temp Pulse Resp B/P Pulse O2 O2 Flow FiO2 Ox Delivery Rate 11/23 612 98.5 91 22 118/76 94 Nasal Cannula 11/23 0000 94 Nasal 1.0L Cannula 11/22 2131 98.9 11/22 2130 95.7 98 22 122/80 94 Nasal 1.0L Cannula 11/22 1835 92 Nasal 1.0L Cannula 11/22 1600 Nasal 1.0L Cannula 11/22 1434 97.4 98 20 120/80 91 11/22 1137 Nasal 2.0L Cannula Intake & Output 11/23 1600 11/23 0800 11/23 0000 Intake Total 150 800 Output Total Balance 150 800 Intake, Oral 150 800 Since saturation 1 L 94% exam for chest shows diminished breath sounds are no wheezes or crackles cardiac exam shows regular S1 and S2 without murmurs CT scan shows decrease in size of pulmonary nodule and COPD Impression/Plan Impression/Plan Impression/Plan: 71-year-old with severe COPD presents with exacerbation and hypoxic respiratory failure which appears to be improving. Repeat CT scan shows no worrisome nodules Recommendations: Begin prednisone taper. Assess oxygen saturation on 1 L with ambulation. Anticipate discharge
[2016-11-23 08:57] LABS: ABSOLUTE BASOPHIL COUNT 0 /CUMM (0.0-0.2); ABSOLUTE EOSINOPHIL COUNT 0 /CUMM (0.0-0.7); ABSOLUTE GRANULOCYTE CT 1.5 /CUMM (1.4-6.5); ABSOLUTE LYMPH COUNT 0.8 /CUMM (1.2-3.4); ABSOLUTE MONOCYTE COUNT 0.2 /CUMM (0.10-0.60); BASOPHIL % 0 % (0.0-2.0); RED BLOOD CELL CT 3.21 /CUMM (4.20-5.40)
[2016-11-23 09:20] LABS: EOSINOPHIL % 0 % (0-5); GRANULOCYTE % 60.9 % (42.2-75.2); HEMATOCRIT 31.1 % (37-47); MEAN CORPUSCULAR HGB 31.9 PG (27.0-31.0); MEAN CORPUSCULAR HGB CONC 32.9 G/DL (33.0-37.0); MEAN CORPUSCULAR VOLUME 96.9 FL (81.0-99.0); MEAN PLATELET VOLUME 6.2 FL (7.4-10.4); PLATELET COUNT 225 /CUMM (130-400); RBC DISTRIBUTION WIDTH 20.7 % (11.5-14.5)
[2016-11-23 09:32] LABS: WHITE BLOOD CELL COUNT 2.5 /CUMM (4.8-10.8)
--- NOTE | 2016-11-23 10:10 | PN- Hematology ---
Subjective Subjective: Her breathing is improve. She denies any new symptoms. Review of Systems: Constitutional: Denies: chills, fever. Cardiovascular: Denies: chest pain, edema, syncope. Respiratory: Reports: cough, short of breath. GI: Denies: abdominal pain, constipation, diarrhea, bloody stool, vomiting. Genitourinary: Denies: dysuria. Musculoskeletal: Denies: back pain, neck pain. Skin: Denies: rash. Neurological/Psychological: Denies: anxiety, confusion. Hematologic/Endocrine: Denies: bruising, bleeding. Immunologic/Allergic: Denies: splenectomy, lymphadenopathy. All Other Systems: Reviewed and Negative Objective Vital Signs and I&Os Vital Signs Date Time Temp Pulse Resp B/P Pulse O2 O2 Flow FiO2 Ox Delivery Rate 11/23 612 98.5 91 22 118/76 94 Nasal Cannula 11/23 0000 94 Nasal 1.0L Cannula 11/22 2132 98.9 11/22 2130 95.7 98 22 122/80 94 Nasal 1.0L Cannula 11/22 1835 92 Nasal 1.0L Cannula 11/22 1600 Nasal 1.0L Cannula 11/22 1434 97.4 98 20 120/80 91 11/22 1137 Nasal 2.0L Cannula Intake & Output 11/23 1600 11/23 0800 11/23 0000 11/22 1600 11/22 0800 11/22 0000 Intake Total 150 201 341 0757 460 Output Total Balance 150 577 599 3939 460 Intake, IV 800 100 Intake, Oral 150 800 500 200 360 Number 1 Bowel Movements Patient 47.627 kg 47.627 kg Weight Physical Exam: General Appearance: well developed/nourished, no apparent distress, alert, awake , comfortable Head: atraumatic, normal appearance Ears, Nose, Throat: normal pharynx, on NC Respiratory: chest non-tender, quiet respiration, decreased breath sounds (at bases) Cardiovascular: normal peripheral pulses, tachycardia Gastrointestinal: normal bowel sounds, soft, non-tender, no organomegaly Extremities: normal inspection, no edema Neurologic/Psych: awake, alert, oriented x 3 Skin: warm/dry Current Medications: Current Medications Sig/Megan Start time Last Medication Dose Route Stop Time Status Admin Acetaminophen 650 MG Q6P PRN 11/21 2300 AC PO Albuterol Sulfate 3 ML Q4H PRN 11/22 1200 AC INH Albuterol Sulfate 2 PUF Q4-6 PRN PRN 11/21 2315 AC INH Azithromycin 500 MG DAILY 11/22 1148 AC 11/23 PO 11/24 1001 0908 Budesonide/ 2 PUF BID 11/21 2304 AC 11/23 Formoterol Fumarate INH 0907 Diltiazem HCl 120 MG DAILY 11/22 1000 AC 11/23 PO 0908 Enoxaparin Sodium 40 MG DAILY 11/22 1000 AC 11/23 SC 0908 Ibuprofen 600 MG Q6P PRN 11/21 2300 AC PO Melatonin 5 MG AT BEDTIME 11/22 0045 AC 11/22 PO 2157 Methylprednisolone 40 MG Q8 11/22 0600 DC 11/23 IV 0542 Olanzapine 5 MG QPM 11/21 2330 DC 11/22 PO 0006 Oxycodone HCl 10 MG Q6P PRN 11/21 2300 AC PO Patient Medication 1 ED .STK-MED ONE 11/22 1401 DC Teaching ED 11/22 1402 Prednisone 40 MG DAILY 11/23 1000 AC PO Senna/Docusate Sodium 2 TAB DAILY PRN 11/21 2315 AC PO Tiotropium [place] 1 PUF DAILY 11/22 1000 AC 11/22 INH 0922 Results Last 24 Hours of Lab Results: Laboratory Tests 11/23 0650 Chemistry Sodium (137 - 145 mmol/L) 134 L Potassium (3.5 - 5.1 mmol/L) 4.9 Chloride (98 - 107 mmol/L) 95 L Carbon Dioxide (22 - 30 mmol/L) 33 H Anion Gap (5 - 16) 6 BUN (7 - 17 mg/dL) 13 Creatinine (0.5 - 1.0 mg/dL) 0.6 Estimated GFR (>60 ml/min) > 60 BUN/Creatinine Ratio (7 - 25 %) 21.7 Vitamin B12 (239 - 931 pg/mL) Pending Folate (2.76 - 20.0 ng/mL) Pending Hematology CBC w Diff MAN DIFF ORDERED WBC (4.8 - 10.8 /CUMM) 2.5 L RBC (4.20 - 5.40 /CUMM) 3.21 L Hgb (12.0 - 16.0 G/DL) 10.2 L Hct (37 - 47 %) 31.1 L MCV (81.0 - 99.0 FL) 96.9 MCH (27.0 - 31.0 PG) 31.9 H RDW (11.5 - 14.5 %) 20.7 H Plt Count (130 - 400 /CUMM) 225 MPV (7.4 - 10.4 FL) 6.2 L Gran % (42.2 - 75.2 %) 60.9 Lymphocytes % (20.5 - 51.1 %) 32.3 Monocytes % (1.7 - 9.3 %) 6.8 Eosinophils % (0 - 5 %) 0 Basophils % (0.0 - 2.0 %) 0 L Absolute Granulocytes (1.4 - 6.5 /CUMM) 1.5 Segmented Neutrophils (42.2 - 75.2 %) 80 H Band Neutrophils (0.0 - 5.0 %) 1 Absolute Lymphocytes (1.2 - 3.4 /CUMM) 0.8 L Lymphocytes (20.5 - 51.1 %) 18 L Monocytes (1.7 - 9.3 %) 1 L Absolute Monocytes (0.10 - 0.60 /CUMM) 0.2 Absolute Eosinophils (0.0 - 0.7 /CUMM) 0 Absolute Basophils (0.0 - 0.2 /CUMM) 0 Platelet Estimate (ADEQUATE) VERIFIED BY SMEAR Normocytic RBCs VERIFIED Normochromic RBCs VERIFIED PUBS MCHC (33.0 - 37.0 G/DL) 32.9 L Assessment/Plan Assessment/Recommendations: Ms. Zimmerman is a 71-year-old female with COPD and schizophrenia who presents to the hospital with likely COPD exacerbation. She is now on oxygen, steroid, and antibiotics. She was noted to have a leukopenia on admission but was relatively stable since December 2015. Olanzapine, like clozapine, has the potential to cause agranulocytosis. This medication has been stopped. Her WBC has improved to 2.5 today. There is a chance it may have been an error yesterday versus effect of olanzapine withdrawal. Given the neutropenia, it is reasonable to continue holding it unless absolutely needed. She will need psychiatry input into changing this medication given her severe schizophrenia history. I would hold off on GCSF support until fever or persistent severe neutropenia. Recommendations: 1. Continue to hold olanzapine 2. Consult psychiatry for replacement of her olanzapine 3. Daily CBC Please call [phone] with any questions or concerns. Problem List: 1. Neutropenia 2. Hypoxia 3. Schizophrenia 4. COPD with exacerbation
--- NOTE | 2016-11-23 11:51 | PN- Housestaff ---
See Addendum Subjective Follow-up For: Acute exacerbation of COPD Leukopenia Subjective: Patient is seen and examined at bedside. She reports feeling significantly better with marketed improvement in her breathing compared to previous days. Does not endorse any acute complaints including chest pain, palpitation, increased shortness of breath, fever, chills, nausea, vomiting, abdominal pain or dysuria. No acute overnight event reported by nursing staff. Review of Systems Constitutional: Reports: see HPI. Denies: no symptoms. Objective Last 24 Hrs of Vital Signs/I&O Vital Signs Date Time Temp Pulse Resp B/P Pulse O2 O2 Flow FiO2 Ox Delivery Rate 11/23 799 94 Nasal 1.0L Cannula 11/23 0613 98.5 91 22 118/76 94 Nasal Cannula 11/23 0000 94 Nasal 1.0L Cannula 11/22 2132 98.9 11/22 2130 95.7 98 22 122/80 94 Nasal 1.0L Cannula 11/22 1835 92 Nasal 1.0L Cannula 11/22 1600 Nasal 1.0L Cannula 11/22 1434 97.4 98 20 120/80 91 Intake & Output 11/23 1600 11/23 0700 11/23 0000 Intake Total 150 800 Output Total Balance 150 800 Intake, Oral 150 800 Physical Exam General Appearance: Alert, Oriented X3, Cooperative, No Acute Distress Skin: No Significant Lesion HEENT: Atraumatic, PERRLA, EOMI, Mucous Membr. moist/pink Neck: Supple, No JVD, No thryomegaly Lymphatic: Cervical nl Cardiovascular: Regular Rate, Normal S1, Normal S2 Lungs: Clear to Auscultation, Normal Air Movement Abdomen: Normal Bowel Sounds, Soft, No Tenderness Neurological: Normal Speech, Sensation Intact Extremities: No Clubbing, No Cyanosis, No Edema, Normal Pulses Vascular: Pulses Symmetrical Assessment/Plan Assessment: This ia a 71-year-old pleasant lady with a past medical history of moderate to severe COPD is presenting with acute respiratory failure and symptoms and signs suggestive of acute exacerbation of COPD (progressive dyspnea, increased cough, sputum production). Assessment and plan #Acute respiratory failure This is in the setting of exacerbation of COPD. Patient most likely will require home oxygen on discharge. O2 was titrated down from 3L to 1 with patient tolerating well. We'll assess ambulation sats level on discharge date to determine O2 home levels. Plan Continue to supplementation with goals of >90% sat #Acute exacerbation of COPD Patient's respiratory status is progressively getting better. CT chest was unremarkable for any acute pathology other than signs of COPD. Plan Will switch on a Medrol IV to oral prednisone today. We'll continue her azithromycin 500 mg daily. # Acute on chronixLCx Leukopenia Patient does endorse a history of leukopenia. Yesterday, a precipitious drop was noted. Today levels are showing an upward trend towards her low baseline. Possible etiology include drug-induced and bone marrow pathology. Patient is on chronic olanzapine use and this is most likely the possible cause for patient continuous and chronic leukopenia, Plan Will switch patient to neutropenic precaution. Even though patient is currently not neutropenic, in the setting of acute exacerbation of COPD, and a significant drop in the white count, it was felt that we should proceed with neutropenic precautions for at least 24 hours. Will stop olanzapine per heme recommendation (appreciated) Will trend CBC tomorrow #History of schizophrenia and with current and continuous auditory hallucination Patient endorses extensive history of schizophrenia with noncommanding auditory hallucination. Patient denies any suicidal or homicidal ideation. Consulted with site regarding cessation of olanzapine and a possible replacement therapy. Plan Will keep off olanzapine for now Will await psych recommendation #Hyponatremia Most likely was hypovolemic hyponatremia which is now resolving. #Disposition Patient respiratory status is improving anticipated discharge date is tomorrow. Problem List: 1. COPD with exacerbation 2. Neutropenia Pain Ratin Pain Location: NONE Pain Goal: Pain 4 or less Pain Plan: none Tomorrow's Labs & Rationales: CBC-trending leukopenia BEP-COPD patient with an elevated bicarbonate
--- NOTE | 2016-11-23 13:55 | Cons- Psychiatry ---
See Addendum Psychiatric Consult Date of Consult: 11/23/16 Reason for Consult: "History of schizo with olanzapine leukopenia" History of Present Illness: 71-year-old female sent to the ER by Dr. Cabrera Benedict with a chief complaint of low oxygen saturation. The patient was admitted for COPD exacerbation. The patient has a history of paranoid schizophrenia, diagnosed after psychiatric hospitalization in 1995, per her report. She is currently followed for psychiatry by Dr. Ki Huggins, of [facility]. Her next appointment with him is on 12/07/2016, with a usual frequency of every 3 months. The patient reports that she has been on olanzapine for over [address] Huggins is in the process of weaning her off this medication. The patient reports that the only medication that ever helped her was haloperidol, first tried in 1995, which alleviated her auditory and visual hallucinations, and also her paranoia. This medication was stopped at some later point due to development of extrapyramidal syndromes including tongue lolling and twitching of her face. She tried other medications with various levels of incomplete relief; at some later point, haloperidol was again tried, but did not work the second time. Allergies: Coded Allergies: NO KNOWN ALLERGIES (10/20/12) Past History Past Medical History Neurological: NONE EENT: NONE Cardiovascular: hypertension Respiratory: COPD Gastrointestinal: NONE Hepatic: NONE Renal: NONE Musculoskeletal: NONE Psychiatric: schizophrenia Endocrine: hypothyroidism Blood Disorders: NONE Cancer(s): NONE COMPUTER TESTER/Reproductive: NONE Past Surgical History Surgical History: non-contributory Assessment/Plan Mental Status Mental Status Exam: The patient is alert, calm and cooperative, sitting in her chair by the bed. She is oriented to person, place, and reason for hospitalization; she is off by one day. The patient denies any symptoms of depression or anxiety. "Years ago, I tried an antidepressant for a few months, but then the psychiatrist discontinued it." She denies any feelings of hopelessness, helplessness or worthlessness. The patient denies suicidal or homicidal ideation. The patient endorses auditory hallucinations, which she states are always present. "Am pretty good at tuning them out." She describes them as non- command and commentary in nature, and are not distressing. She will report to nursing if these worsen. She denies current visual hallucinations, but says that they have occasionally occurred, without extreme stress. Patient reports that she drinks 2 beers per day, and denies any use of street or recreational drugs, including cannabis. The patient lives alone, and states that her 2 sisters and a brother live nearby , and she has frequent contact with them. A slow tremor of the patient's left hand was noted during this visit. Lab Results: Laboratory Tests 11/23 11/22 0650 0640 Chemistry Sodium (137 - 145 mmol/L) 134 L 132 L Potassium (3.5 - 5.1 mmol/L) 4.9 4.3 Chloride (98 - 107 mmol/L) 95 L 94 L Carbon Dioxide (22 - 30 mmol/L) 33 H 30 Anion Gap (5 - 16) 6 7 BUN (7 - 17 mg/dL) 13 6 L Creatinine (0.5 - 1.0 mg/dL) 0.6 0.5 Estimated GFR (>60 ml/min) > 60 > 60 BUN/Creatinine Ratio (7 - 25 %) 21.7 12.0 Vitamin B12 (239 - 931 pg/mL) > 1000 H Folate (2.76 - 20.0 ng/mL) 15.6 Hematology CBC w Diff MAN DIFF ORDERED MAN DIFF ORDERED WBC (4.8 - 10.8 /CUMM) 2.5 L 1.0 *L RBC (4.20 - 5.40 /CUMM) 3.21 L 3.16 L Hgb (12.0 - 16.0 G/DL) 10.2 L 10.1 L Hct (37 - 47 %) 31.1 L 30.5 L MCV (81.0 - 99.0 FL) 96.9 96.7 MCH (27.0 - 31.0 PG) 31.9 H 32.1 H RDW (11.5 - 14.5 %) 20.7 H 20.6 H Plt Count (130 - 400 /CUMM) 225 197 MPV (7.4 - 10.4 FL) 6.2 L 6.1 L Gran % (42.2 - 75.2 %) 60.9 Lymphocytes % (20.5 - 51.1 %) 32.3 Monocytes % (1.7 - 9.3 %) 6.8 Eosinophils % (0 - 5 %) 0 Basophils % (0.0 - 2.0 %) 0 L Absolute Granulocytes (1.4 - 6.5 /CUMM) 1.5 Segmented Neutrophils (42.2 - 75.2 %) 80 H 62 Band Neutrophils (0.0 - 5.0 %) 1 Absolute Lymphocytes (1.2 - 3.4 /CUMM) 0.8 L Lymphocytes (20.5 - 51.1 %) 18 L 36 Monocytes (1.7 - 9.3 %) 1 L 2 Absolute Monocytes (0.10 - 0.60 /CUMM) 0.2 Absolute Eosinophils (0.0 - 0.7 /CUMM) 0 Absolute Basophils (0.0 - 0.2 /CUMM) 0 Platelet Estimate (ADEQUATE) VERIFIED BY SMEAR ADEQUATE Normocytic RBCs VERIFIED Normochromic RBCs VERIFIED Polychromasia 2+ Hypochromic-Microcytic 1+ Poikilocytosis 1+ Anisocytosis 2+ PUBS MCHC (33.0 - 37.0 G/DL) 32.9 L 33.2 11/21 11/21 2124 2124 Urines Urine Color (YEL,AMB,STR) YEL Urine Clarity (CLEAR) CLEAR Urine pH (5.0 - 8.0) 7.0 Ur Specific [place] (1.001 - 1.035) <= 1.005 Urine Protein (NEG,<30 MG/DL) NEG Urine Ketones (NEG) TRACE H Urine Nitrite (NEG) NEG Urine Bilirubin (NEG) NEG Urine Urobilinogen (0.1 - 1.0 EU/dl) 0.2 Ur Leukocyte Esterase (NEG) NEG Ur Microscopic EXAM NOT REQUIRED Urine Hemoglobin (NEG) NEG Urine Osmolality (300 - 1000 MOSM/KG) 136 L Ur Random Creatinine (mg/dL) 23.4 Ur Random Sodium (30 - 90 mmol/L) 14 L Ur Random Potassium (mmol/L) 15.5 Fraction Sodium Excret (<1% %) 0.3 Urine Glucose (N MG/DL) NEG 11/21 1755 Chemistry Sodium (137 - 145 mmol/L) 127 L Potassium (3.5 - 5.1 mmol/L) 3.9 Chloride (98 - 107 mmol/L) 85 L Carbon Dioxide (22 - 30 mmol/L) 34 H Anion Gap (5 - 16) 8 BUN (7 - 17 mg/dL) 10 Creatinine (0.5 - 1.0 mg/dL) 0.6 Estimated GFR (>60 ml/min) > 60 BUN/Creatinine Ratio (7 - 25 %) 16.7 Glucose (65 - 99 mg/dL) 107 H Serum Osmolality (285 - 295 MOSM/KG) 264 L Calcium (8.4 - 10.2 mg/dL) 9.0 Magnesium (1.6 - 2.3 mg/dL) 1.8 Total Bilirubin (0.2 - 1.3 mg/dL) 1.0 AST (14 - 36 U/L) 34 ALT (9 - 52 U/L) 31 Alkaline Phosphatase (<127 U/L) 84 Troponin I (< 0.11 ng/ml) < 0.01 Total Protein (6.3 - 8.2 g/dL) 7.1 Albumin (3.5 - 5.0 g/dL) 4.1 Globulin (1.9 - 4.2 gm/dL) 3.0 Albumin/Globulin Ratio (1.1 - 2.2 %) 1.4 Hematology CBC w Diff NO MAN DIFF REQ WBC (4.8 - 10.8 /CUMM) 2.7 L RBC (4.20 - 5.40 /CUMM) 3.40 L Hgb (12.0 - 16.0 G/DL) 10.8 L Hct (37 - 47 %) 32.5 L MCV (81.0 - 99.0 FL) 95.8 MCH (27.0 - 31.0 PG) 31.9 H RDW (11.5 - 14.5 %) 20.5 H Plt Count (130 - 400 /CUMM) 220 MPV (7.4 - 10.4 FL) 5.8 L Gran % (42.2 - 75.2 %) 55.1 Lymphocytes % (20.5 - 51.1 %) 34.5 Monocytes % (1.7 - 9.3 %) 10.4 H Eosinophils % (0 - 5 %) 0 Basophils % (0.0 - 2.0 %) 0 L Absolute Granulocytes (1.4 - 6.5 /CUMM) 1.5 Absolute Lymphocytes (1.2 - 3.4 /CUMM) 0.9 L Absolute Monocytes (0.10 - 0.60 /CUMM) 0.3 Absolute Eosinophils (0.0 - 0.7 /CUMM) 0 Absolute Basophils (0.0 - 0.2 /CUMM) 0 PUBS MCHC (33.0 - 37.0 G/DL) 33.3 Diffential Diagnosis: Paranoid schizophrenia Impression: The patient's current psychotic says though of auditory hallucinations, has not been relieved by medication in years, per her report. At present, these are not distressing, and the patient reports no difficulty in ignoring this symptom, which presents as commentary by several people unknown to her. We have no difficulty with discontinuation of her olanzapine at this time, which is thought to be implicated in her leukopenia. She is currently on a low dose of this medication, and her psychiatric electrical contacts adjuster, per her report, has been tapering her off this medication. She gave written permission for us to contact her psychiatrist, Dr. Ki Huggins at [facility], but the office was closed today. I will contact him tomorrow, and informed him of this development. The patient should be kept overnight in the hospital to observe for any rebound symptoms, although these are unlikely due to the low dose of olanzapine, an antipsychotic medication. Provisional Treatment Plan: 1. Stop olanzapine. 2. Monitor for worsening of auditory hallucinations, or recurrence of visual hallucinations. 3. Please send a discharge summary to Dr. Ki Huggins at [facility] in [facility]. I will revisit the patient tomorrow, Sunday, to 08/03/2017. Thank you for asking us to participate in Jeannine's care. Elan Ferrer APRN, pager [phone].
[2016-11-23 14:14] VITALS: BP 120/80
[2016-11-23 22:44] VITALS: BP 138/90
[2016-11-24 06:16] VITALS: BP 122/70
--- NOTE | 2016-11-24 07:51 | PN- Pulmonary ---
Subjective HPI/Critical Care Issues: Patient continues to have intermittent wheezing but shortness of breath is improved Objective Current Medications: Current Medications Sig/Megan Start time Last Medication Dose Route Stop Time Status Admin Acetaminophen 650 MG Q6P PRN 11/21 2300 AC PO Albuterol Sulfate 3 ML Q4H PRN 11/22 1200 AC INH Albuterol Sulfate 2 PUF Q4-6 PRN PRN 11/21 2315 AC INH Azithromycin 500 MG DAILY 11/22 1148 AC 11/23 PO 11/24 1001 0908 Budesonide/ 2 PUF BID 11/21 2304 AC 11/23 Formoterol Fumarate INH 2106 Diltiazem HCl 120 MG DAILY 11/22 1000 AC 11/23 PO 0908 Enoxaparin Sodium 40 MG DAILY 11/22 1000 AC 11/23 SC 0908 Ibuprofen 600 MG Q6P PRN 11/21 2300 AC PO Melatonin 5 MG AT BEDTIME 11/22 0045 AC 11/23 PO 2106 Methylprednisolone 40 MG Q8 11/22 0600 DC 11/23 IV 0542 Oxycodone HCl 10 MG Q6P PRN 11/21 2300 AC PO Patient Medication 1 ED .STK-MED ONE 11/23 1334 DC Teaching ED 11/23 1335 Prednisone 40 MG DAILY 11/23 1000 AC 11/23 PO 1016 Senna/Docusate Sodium 2 TAB DAILY PRN 11/21 2315 AC PO Tiotropium [place] 1 PUF DAILY 11/22 1000 AC 11/23 INH 1214 Vital Signs & I&O Last 24 Hrs of Vitals and I&O: Vital Signs Date Time Temp Pulse Resp B/P Pulse O2 O2 Flow FiO2 Ox Delivery Rate 11/24 0616 97.6 100 20 122/70 90 Nasal 2.0L Cannula 11/24 0000 95 Nasal 1.0L Cannula 11/23 2244 97.3 96 18 138/90 93 Nasal 1.0L Cannula 11/23 1456 92 Nasal 2.0L Cannula 11/23 1414 97.3 104 24 120/80 91 11/23 0800 94 Nasal 1.0L Cannula Intake & Output 11/24 0800 11/24 0000 11/23 1600 Intake Total 616 424 3533 Output Total 600 Balance 947 526 0805 Intake, Oral 014 673 5100 Output, Urine 600 Oxygen saturation 2 L 90% exam of her chest shows diminished breath sounds cardiac exam shows a regular S1 and S2 without murmurs Impression/Plan Impression/Plan Impression/Plan: 71-year-old with severe COPD presents with exacerbation and hypoxic respiratory failure which appears to be improving. Repeat CT scan shows no worrisome nodules Recommendations: Begin prednisone taper. Patient will require oxygen at discharge at 2 L. Follow-up in the office next week
[2016-11-24] MEDS ORDERED: PREDNISONE20 M1 PO ×2 (08:04→10:14)
--- NOTE | 2016-11-24 08:07 | Patient Discharge Instructions ---
Discharge Instructions General Discharge Information You were seen/treated for: WORSENING COPD Special Instructions: PLEASE FOLLOW UP WITH YOUR PCP WITHIN 1 WEEK PLEASE START USING YOUR USE HOME OXYGEN NEEDED PLEASE STOP TAKING THE OLANZAPINE PLEASE FOLLOW UP WITH YOU PSYCHIATRIST ON SUNDAY(11/27) REGARDING MEDICATION OPTIONS FOR YOUR SCHIZOPHRENIA Acute Coronary Syndrome Inclusion Criteria At DC or during hospital stay patient has or had the following: ACS DIAGNOSIS No Discharge Core Measures Meds if any: Prescribed or Continued at Discharge Meds if any: NOT Prescribed or Continued at Discharge Congestive Heart Failure Inclusion Criteria At DC or during hospital stay patient has or had the following: CHF DIAGNOSIS No Discharge Core Measures Meds if any: Prescribed or Continued at Discharge Meds if any: NOT Prescribed or Continued at Discharge Cerebrovascular accident Inclusion Criteria At DC or during hospital stay patient has or had the following: CVA/TIA Diagnosis No Discharge Core Measures Meds if any: Prescribed or Continued at Discharge Meds if any: NOT Prescribed or Continued at Discharge Venous thromboembolism Inclusion Criteria VTE Diagnosis No VTE Type NONE VTE Confirmed by (Test) NONE Discharge Core Measures - Per Current guidelines, there needs to be overlap - treatment for the first 5 days of Warfarin therapy. - If discharged on Warfarin prior to 5 days of - overlap therapy, the patient will need to be - assessed for post discharge needs including - *Post discharge parental anticoagulation - *Warfarin and/or parental anticoagulation education - *Follow up date to check INR post discharge At least 5 days overlap therapy as Inpatient No Meds if any: Prescribed or Continued at Discharge Note: Overlap Therapy is Warfarin and Anticoagulant Meds if any: NOT Prescribed or Continued at Discharge
[2016-11-24 08:15] LABS: HEMATOCRIT 30.8 % (37-47); MEAN CORPUSCULAR HGB 32.3 PG (27.0-31.0); MEAN CORPUSCULAR VOLUME 97.8 FL (81.0-99.0); MEAN PLATELET VOLUME 6.2 FL (7.4-10.4); PLATELET COUNT 222 /CUMM (130-400); RBC DISTRIBUTION WIDTH 21.7 % (11.5-14.5); RED BLOOD CELL CT 3.15 /CUMM (4.20-5.40); WHITE BLOOD CELL COUNT 3.3 /CUMM (4.8-10.8)
--- NOTE | 2016-11-24 09:51 | PN- Hematology ---
Subjective Subjective: She feels well. Breathing is improved since admission and stable for last day. She has no new symptoms. Review of Systems: Constitutional: Denies: chills, fever. Cardiovascular: Denies: chest pain, edema, syncope. Respiratory: Reports: cough, short of breath. GI: Denies: abdominal pain, constipation, diarrhea, bloody stool, vomiting. Genitourinary: Denies: dysuria. Neurological/Psychological: Denies: anxiety, confusion. All Other Systems: Reviewed and Negative Objective Vital Signs and I&Os Vital Signs Date Time Temp Pulse Resp B/P Pulse O2 O2 Flow FiO2 Ox Delivery Rate 11/24 0855 93 Nasal 1.0L Cannula 11/24 0616 97.6 100 20 122/70 90 Nasal 2.0L Cannula 11/24 0000 95 Nasal 1.0L Cannula 11/23 2244 97.3 96 18 138/90 93 Nasal 1.0L Cannula 11/23 1456 92 Nasal 2.0L Cannula 11/23 1414 97.3 104 24 120/80 91 Intake & Output 11/24 1600 11/24 0811/24 0000 11/23 1600 11/23 0800 11/23 0000 Intake Total 491 291 7788 150 800 Output Total 600 Balance 614 999 3704 150 800 Intake, Oral 799 598 5774 150 800 Output, Urine 600 Physical Exam: General Appearance: well developed/nourished, no apparent distress, alert, awake , comfortable Head: atraumatic, normal appearance Ears, Nose, Throat: normal pharynx, on NC Respiratory: chest non-tender, quiet respiration, decreased breath sounds (at bases) Extremities: normal inspection, no edema Neurologic/Psych: awake, alert, oriented x 3 Skin: warm/dry Current Medications: Current Medications Sig/Megan Start time Last Medication Dose Route Stop Time Status Admin Acetaminophen 650 MG Q6P PRN 11/21 2300 AC PO Albuterol Sulfate 3 ML Q4H PRN 11/22 1200 AC 11/24 INH 0851 Albuterol Sulfate 2 PUF Q4-6 PRN PRN 11/21 2315 AC INH Azithromycin 500 MG DAILY 11/22 1148 AC 11/24 PO 11/24 1001 0935 Budesonide/ 2 PUF BID 11/21 2304 AC 11/24 Formoterol Fumarate INH 0934 Diltiazem HCl 120 MG DAILY 11/22 1000 AC 11/24 PO 0935 Enoxaparin Sodium 40 MG DAILY 11/22 1000 AC 11/24 SC 0935 Ibuprofen 600 MG Q6P PRN 11/21 2300 AC PO Melatonin 5 MG AT BEDTIME 11/22 0045 AC 11/23 PO 2106 Oxycodone HCl 10 MG Q6P PRN 11/21 2300 AC PO Patient Medication 1 ED .STK-MED ONE 11/23 1334 GA Teaching ED 11/23 1335 Prednisone 40 MG DAILY 11/23 999 AC 11/24 PO 35 Senna/Docusate Sodium 2 TAB DAILY PRN 11/21 2315 AC PO Tiotropium [place] 1 PUF DAILY 11/22 1000 AC 11/24 INH 0933 Results Last 24 Hours of Lab Results: Laboratory Tests 11/24 634 Chemistry Sodium (137 - 145 mmol/L) 133 L Potassium (3.5 - 5.1 mmol/L) 4.9 Chloride (98 - 107 mmol/L) 95 L Carbon Dioxide (22 - 30 mmol/L) 34 H Anion Gap (5 - 16) 4 L BUN (7 - 17 mg/dL) 20 H Creatinine (0.5 - 1.0 mg/dL) 0.7 Estimated GFR (>60 ml/min) > 60 BUN/Creatinine Ratio (7 - 25 %) 28.6 H Hematology CBC w Diff MAN DIFF ORDERED WBC (4.8 - 10.8 /CUMM) 3.3 L RBC (4.20 - 5.40 /CUMM) 3.15 L Hgb (12.0 - 16.0 G/DL) 10.2 L Hct (37 - 47 %) 30.8 L MCV (81.0 - 99.0 FL) 97.8 MCH (27.0 - 31.0 PG) 32.3 H RDW (11.5 - 14.5 %) 21.7 H Plt Count (130 - 400 /CUMM) 222 MPV (7.4 - 10.4 FL) 6.2 L Segmented Neutrophils (42.2 - 75.2 %) 55 Lymphocytes (20.5 - 51.1 %) 40 Monocytes (1.7 - 9.3 %) 5 Nucleated RBCs (0.0 - 0.0 /100WBC) 2 H Platelet Estimate (ADEQUATE) ADEQUATE Polychromasia 1+ Hypochromic-Microcytic 1+ Poikilocytosis 1+ PUBS MCHC (33.0 - 37.0 G/DL) 33.0 Assessment/Plan Assessment/Recommendations: Ms. Zimmerman is a 71-year-old female with COPD and schizophrenia who presents to the hospital with likely COPD exacerbation. COPD exacerbation is improved. Neutropenia has improved since discontinuation of olanzapine. Her WBC is 3.3 today. Psychiatry have been consulted and seen patient. Recommendations: 1. Continue to hold olanzapine 2. Follow up as needed or if WBC decreases Please call [phone] with any questions or concerns. Problem List: 1. Neutropenia 2. Schizophrenia 3. COPD with exacerbation 4. Hypoxia
--- NOTE | 2016-11-24 10:26 | PN- Housestaff ---
Subjective Follow-up For: Acute exacerbation of COPD Neutropenia Subjective: Patient is seen and examined at bedside. She reports that she still has some mild wheezing however her breathing is significantly improved compared to previous days. Patient does not endorse any new acute complaints including chest pain, palpitation, fever, nausea, chills, dizziness, abdominal pain, or dysuria. Patient also does not endorse any suicidal or homicidal ideation and points out that her noncommand hallucinations are not that profound and she is able to control them. Review of Systems Constitutional: Denies: see HPI. Objective Last 24 Hrs of Vital Signs/I&O Vital Signs Date Time Temp Pulse Resp B/P Pulse O2 O2 Flow FiO2 Ox Delivery Rate 11/24 0855 93 Nasal 1.0L Cannula 11/24 0616 97.6 100 20 122/70 90 Nasal 2.0L Cannula 11/24 0000 95 Nasal 1.0L Cannula 11/23 2244 97.3 96 18 138/90 93 Nasal 1.0L Cannula 11/23 1456 92 Nasal 2.0L Cannula 11/23 1414 97.3 104 24 120/80 91 Intake & Output 11/24 1600 11/24 0800 11/24 0000 Intake Total 120 600 Output Total Balance 120 600 Intake, Oral 120 600 Physical Exam General Appearance: Alert, Oriented X3, Cooperative Skin: No Significant Lesion Lymphatic: Cervical nl Cardiovascular: Regular Rate, Normal S1, Normal S2 Lungs: very faint wheezing bilateral. However significantly improved compared to previous days Abdomen: Normal Bowel Sounds, Soft, No Tenderness, No Hepatospenomegaly Neurological: Normal Speech, Strength at 5/5 X4 Ext, Normal Tone Extremities: No Clubbing, No Cyanosis, No Edema, Normal Pulses, No Tenderness/ Swelling Vascular: Pulses Symmetrical Assessment/Plan Assessment: This ia a 71-year-old pleasant lady with a past medical history of moderate to severe COPD is presenting with acute respiratory failure and symptoms and signs suggestive of acute exacerbation of COPD (progressive dyspnea, increased cough, sputum production). Assessment and plan #Acute respiratory failure Patient doesn't report improvement in her breathing, does seem to desaturate on ambulation (<89%). Plan We'll discharge patient with home O2 (2 L) #Acute exacerbation of COPD Patient's respiratory status is progressively getting better. CT chest was unremarkable for any acute pathology other than signs of COPD. Plan Discharge patient today with rapid prednisone taper. # Acute on chronix neutropenia Patient or blood cell count levels today show a normalization to her baseline low levels. it is possible that the previous precipitous drop could of been a lab error. However the effect of olanzapine is suspected. Plan Olanzapine stopped, no coverage for high is a any symptoms needed as of now as patient is not dosing any homicidal or suicidal ideation. Of note recommendation from her primary psychiatrist notes that the already plans for tapering off olanzapine. Problem List: 1. COPD with exacerbation 2. Hypoxia 3. Schizophrenia 4. Neutropenia Pain Ratin Pain Location: none Pain Goal: Remain pain free Pain Plan: delfino-patient is being discharged. Tomorrow's Labs & Rationales: none-pt being discharged
--- NOTE | 2016-11-24 10:31 | Discharge Summary ---
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 Patient reported symptoms of dry cough and wheezing for about 10 days, with no relief with OTC cough syrup or inhalers. Associated symptoms included exertional dyspnea, weakness and loss of appetite. No sick contacts. Received flu and pneumonia vaccine last year. VS on admission: afebrile, tachycardic, BP 158/86, sats 80% RA --> 92% on 3L. Exam: AAO, in mild respiratory distress, able tos peak in full sentences, Dry mucous membranes, Neck supple, Chest b/l reduced air entry with scattered expiratory wheeze, Heart S1S2 tachycardic. Extremities no edema. Labs: WBC 2.7, Na 127 (baseline 138-140), bicarb 34, trop neg, EKG: Sinus tachycardia. CXR: COPD, no pneumonia. PFT (2010): severe obstructive lung disease with airtrapping and hyperinflation. Flu swab negative. Pt was then admitted to general medicine floor for evaluation and treatment of COPD exacerbation and acute hypoxic respiratory failure. Patient was discharged on the 4th day of admission. The following issues were addressed: COPD Execarbation Patient was started on Solu Medrol IV and ipratropium/albuterol nebulizer therapy, her home repsiratory medications were continued, and she was placed on 3 L nasal cannula to keep her sats above 90%. Pt responded well. #Acute hypoxic respiratory failure Pt was desaturating to lower than 88% on ambulation. She was discharged on 2L home o2. #Leukopenia Pt has a baseline low WBC of around 3. However, second day of admission, pt dropped to 1. Possibly differentials that were entertained included viral induced vs drug induced. Heme consult was obtained and it was reccomended that her olanzapine be stopped. Next day labs of her WBC showed normalization back to her low baseline of 3. It could be possible that lab error night have caused the drop. Regardless, olanzapine was stopped due to its possible effect oin causing leukopenia. #History of Schizophrenia with paranoia. Psych was consulted regarding the alternative to olanzapine. They contacted braulio's psychiatrist, who reccomended braulio of follow up since he was already tapering off the olanzapine. Allergies: Coded Allergies: NO KNOWN ALLERGIES (10/20/12) Disposition Summary Disposition Principal Diagnosis: COPD Exercarbation Additional Diagnosis: Acute Hypoxic respiratory failure Discharge Disposition: home or self care Discharge Instructions General Discharge Information Code Status: Full Code Patient's Diet: regular Patient's Activity: as tolerated Follow-Up Instructions/Appts: pt is to follow up with her psychiatrist within 1 week Medications at Discharge Discharge Medications: Stop taking the following medications: Olanzapine (Olanzapine) 5 MG TABLET ORAL Every night Qty = 30 Continue taking these medications: Budesonide/Formoterol Fumarate (Symbicort 160-4.5 Mcg Inhaler) 160 MCG-4.5 MCG/ ACTUATION HFA.AER.AD 2 Puff Inhale through mouth TWICE DAILY Qty = 10 Comments: Last Taken: 11/24/16 Time: 1000 Diltiazem HCl (Cartia Xt) 120 MG CAP.ER.24H 1 Capsule ORAL DAILY Qty = 30 Comments: Last Taken: 11/24/16 Time: 1000 Tiotropium [place] (Spiriva) 18 MCG CAP.W.DEV 1 Capsule Inhale through mouth DAILY Qty = 30 Comments: Last Taken: 11/24/16 Time: 1000 Albuterol Sulfate (Ventolin Hfa) 90 MCG HFA.AER.AD 2 Puff Inhale through mouth EVERY 4-6 HOURS NEEDED as needed for COPD Qty = 18 Comments: PER PT Calcium Carbonate/Vitamin D3 (Calcium 500 + D Tablet) (Unknown Strength) TABLET Unknown Dose ORAL DAILY Comments: NOT TAKEN IN HOSPITAL Ascorbate Calcium (Vitamin C) 500 MG TABLET 1 Tablet ORAL DAILY Comments: NOT TAKEN IN HOSPITAL Start taking the following new medications: Prednisone (Prednisone) 20 MG TABLET 10 Milligram ORAL [DIRECTED] Qty = 12 No Refills Instructions: TAKE 3 TABLETS DAILY FOR 2 DAYS 11/25-11/26 TAKE 2 TABLETS DAILY FOR 2 DAYS 11/27-11/28 TAKE 1 TABLETS DAILY FOR 2 DAYS 11/29-11/30 Comments: Last Taken: 11/24/16 Time: 1000 Copies To: KRYSTAL MCGUIRE APRN Attending MD Review Statement Documenting Attending: YARIEL YOUSIF,BONIFACIO Hutchison Other Findings: agree with the above discharge plan.
--- NOTE | 2016-11-24 13:02 | PN- Att Addend ---
Attending MD Review Statement Attending Statement Attending MD Statement: examined this patient, discuss w/resident/PA/STATE'S ATTORNEY, agreed w/resident/PA/STATE'S ATTORNEY, reviewed EMR data (avail), discussed w/nursing, discussed w/ case mgmt Attending Assessment/Plan: Pt admitted with copd exacerbation- which is stable. still has some wheezing on exam in the left lung dahl. Pt will be dced on prednisone taper and home oxygen. Neutropenia - pt seen by hematology, thought olanzapine may be causing it. Agree with stopping olanzapine. d/w psychiatry the stopping of olanzapine. WBC trending up. dc home with close f/u with psychiatry and pulmonology. d/w pt the care plan.
--- NOTE | 2016-11-24 14:04 | PN- Psychiatry ---
Assessment/Plan Impression: With the stopping of olanzapine 5 mg PO daily, WBC has rebounded from 1 to 3.30. The patient reports that she is generally at 3. We do not recommend restart of olanzapine for her paranoid schizophrenia, as her symptoms are mild and tolerable. I instructed her to come to the ED or call 911 if they become distressing. The patient has an appointment with her psychiatrist, Dr. Ki Huggins, at [facility] on 12/07/16. She will call today and ask if she can be seen sooner. I spoke with Dr. Huggins today, with her written permission, and he confirms that the plan has been to taper the patient off olanzapine, and would like her to not restart an antipsychotic at this time to see how she does. The patient is in agreement with this plan. Suggestion: 1. The patient should discharge without olanzapine, discontinued due to leukopenia, which has improved off this med. 2. The patient will call her psychiatrist, Dr. Huggins, to ask about an appointment earlier than the currently scheduled one on 12/07/16. 3. She is to call 911 or come to the ED if her auditory hallucinations worsen, or if other symptoms of her schizophrenia emerge. 4. Please encourage the patient to followup with hematology, in the hope they can correct her long-standing leukopenia, in the event that an antipsychotic is needed in the future. Thepatient is clear for discharge from a psychiatry viewpoint. Thank-you for asking us to participate in Jeannine's care. Elan Ferrer APRN, Pager [phone] Subjective Subjective: Alert, oriented, sitting in her chair waiting for her sister to pick her up at discharge. Denies SI/HI. So far, auditory hallucinations in the form of non-command voices are the same as yesterday on olanzapine. The patient feels she is stable and ready for discharge. Objective Last 24 Hrs of Vital Signs/I&O Laboratory Tests 11/24 0635 Chemistry Sodium (137 - 145 mmol/L) 133 L Potassium (3.5 - 5.1 mmol/L) 4.9 Chloride (98 - 107 mmol/L) 95 L Carbon Dioxide (22 - 30 mmol/L) 34 H Anion Gap (5 - 16) 4 L BUN (7 - 17 mg/dL) 20 H Creatinine (0.5 - 1.0 mg/dL) 0.7 Estimated GFR (>60 ml/min) > 60 BUN/Creatinine Ratio (7 - 25 %) 28.6 H Hematology CBC w Diff MAN DIFF ORDERED WBC (4.8 - 10.8 /CUMM) 3.3 L RBC (4.20 - 5.40 /CUMM) 3.15 L Hgb (12.0 - 16.0 G/DL) 10.2 L Hct (37 - 47 %) 30.8 L MCV (81.0 - 99.0 FL) 97.8 MCH (27.0 - 31.0 PG) 32.3 H RDW (11.5 - 14.5 %) 21.7 H Plt Count (130 - 400 /CUMM) 222 MPV (7.4 - 10.4 FL) 6.2 L Segmented Neutrophils (42.2 - 75.2 %) 55 Lymphocytes (20.5 - 51.1 %) 40 Monocytes (1.7 - 9.3 %) 5 Nucleated RBCs (0.0 - 0.0 /100WBC) 2 H Platelet Estimate (ADEQUATE) ADEQUATE Polychromasia 1+ Hypochromic-Microcytic 1+ Poikilocytosis 1+ PUBS MCHC (33.0 - 37.0 G/DL) 33.0 Vital Signs Date Time Temp Pulse Resp B/P Pulse O2 O2 Flow FiO2 Ox Delivery Rate 11/24 0855 93 Nasal 1.0L Cannula 11/24 0616 97.6 100 20 122/70 90 Nasal 2.0L Cannula 11/24 0000 95 Nasal 1.0L Cannula 11/23 2244 97.3 96 18 138/90 93 Nasal 1.0L Cannula 11/23 1456 92 Nasal 2.0L Cannula 11/23 1414 97.3 104 24 120/80 91 Intake & Output 11/24 1600 11/24 0800 11/24 0000 Intake Total 120 600 Output Total Balance 120 600 Intake, Oral 120 600
== END 2016-11-24 14:43 | disposition home health service (06) | DRG 190 ==
LOC: ENRESERVTM → ENRESERVDT → ERH 15:51 → 2NA 18:02 → ENPENDDIS 18:02 → ERHI 18:02 → 2NA 22:18
PROVIDERS: Emergency Medicine; Internal Medicine; Student in an Organized Health Care Education/Training Program; ADMIT Student in an Organized Health Care Education/Training Program
DX: J44.1 Chronic obstructive pulmonary disease with (acute) exacerbation (principal); J96.01 Acute respiratory failure with hypoxia; E87.1 Hypo-osmolality and hyponatremia; D70.2 Other drug-induced agranulocytosis; T43.595A Adverse effect of other antipsychotics and neuroleptics, initial encounter; Y92.89 Other specified places as the place of occurrence of the external cause; I10 Essential (primary) hypertension; E03.9 Hypothyroidism, unspecified; F20.9 Schizophrenia, unspecified; Z87.891 Personal history of nicotine dependence; M81.0 Age-related osteoporosis without current pathological fracture
CPT/HCPCS: 2NAP; 2NASP; 84133; 84300; 36415; 81003; 82436; 82570; 87804; 87804-59; 93005; 93010; 99232; J0456; J1650; J2920; J2930; J3490; J7060

== ENCOUNTER 2016-12-07 12:58 | Emergency (ER) | payer OTHER, MEDICARE ==
[~2016-12-07] VITALS: Ht 162.6 cm; Wt 44.5 kg
[~2016-12-07 12:58] MED LIST: CALCIUM 500 +1 EAC5 PO; CARTIA XT120 M1 PO; OLANZAPINE5 M2 PO; PREDNISONE20 M1 PO; SPIRIVA18 MCG INH; SYMBICORT 16010.2 GM INH; VENTOLIN HFA18 GM INH; VITAMIN C500 M6 PO
--- NOTE | 2016-12-07 13:08 | ED CARDIAC/CP/PALPITATIONS ---
History of Present Illness General Chief Complaint: General Adult Stated Complaint: TACHYCARDIA Source: patient, old records, EMS Exam Limitations: no limitations Vital Signs & Intake/Output Vital Signs & Intake/Output Vital Signs Date Time Temp Pulse Resp B/P Pulse O2 O2 Flow FiO2 Ox Delivery Rate 12/07 1423 97.3 110 18 124/79 95 Nasal 2.0L Cannula 12/07 1313 96 Nasal 2.0L Cannula 12/07 1304 97.4 124 20 151/78 95 Nasal 2.0L Cannula ED Intake and Output 12/08 0000 12/07 1200 Intake Total 0 Output Total Balance 0 Intake, Oral 0 Patient 98 lb Weight Allergies Coded Allergies: NO KNOWN ALLERGIES (10/20/12) Reconcile Medications Albuterol Sulfate (Ventolin Hfa) 90 MCG HFA.AER.AD 2 PUF INH Q4-6 PRN PRN COPD (Reported) Ascorbate Calcium (Vitamin C) 500 MG TABLET 1 TAB PO DAILY SUPPLEMENT ( Reported) Budesonide/Formoterol Fumarate (Symbicort 160-4.5 Mcg Inhaler) 160 MCG-4.5 MCG/ ACTUATION HFA.AER.AD 2 PUF INH BID COPD (Reported) Calcium Carbonate/Vitamin D3 (Calcium 500 + D Tablet) (Unknown Strength) TABLET (Unknown Dose) PO DAILY SUPPLEMENT (Reported) Diltiazem HCl (Cartia Xt) 120 MG CAP.ER.24H 1 CAP PO DAILY HEART/BP (Reported ) Prednisone 20 MG TABLET 10 MG PO [DIRECTED] COPD TAKE 3 TABLETS DAILY FOR 2 DAYS 11/25-11/26 TAKE 2 TABLETS DAILY FOR 2 DAYS 11/27-11/28 TAKE 1 TABLETS DAILY FOR 2 DAYS 11/29-11/30 Tiotropium [place] (Spiriva) 18 MCG CAP.W.DEV 1 CAP INH DAILY COPD (Reported) Triage Nurses Notes Reviewed? 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 On arrival the patient offers no complaints. She states that this was a new visiting nurse who came to see her today and during the first 5 minutes found her to be tachycardic and called EMS. The patient states she has a baseline tachycardia for which she is on Cardizem 120 mg daily. She did take her dose this morning. The patient is on 2 L of oxygen at baseline after being admitted here earlier this month for COPD exacerbation. She denies any shortness of breath cough hemoptysis no pain with inspiration no dizziness lightheadedness fevers or chills. There are no modifying factors or associated symptoms otherwise patient is otherwise without any complaints. (ALISON ROSE) Past History Travel History Traveled to [place] past 21 day No Medical History Any Pertinent Medical History? see below for history Neurological: NONE EENT: NONE Cardiovascular: hypertension Respiratory: COPD Gastrointestinal: NONE Hepatic: NONE Renal: NONE Musculoskeletal: NONE Psychiatric: schizophrenia Endocrine: hypothyroidism Blood Disorders: NONE Cancer(s): NONE FORGING DIES FINAL FINISHER/Reproductive: NONE History of MRSA: No History of VRE: No History of CDIFF: No Influenza Vaccine: 08/21/16 Surgical History Surgical History: non-contributory Psychosocial History Who do you live with Patient/Self Services at Home None What is your primary language Thai Family History Hx Contributory? No (ALISON ROSE) Review of Systems Review of Systems Constitutional: Reports: see HPI. All Other Systems: Reviewed and Negative Comments Review of systems: See HPI, All other systems negative. Constitutional, no chills no fever, no malaise HEENT: No visual changes no sore throat no congestion, Cardiovascular: No chest pain , no palpitation , no orthopnea no ankle swelling Skin, no rashes, no change in skin Respiratory: No dyspnea no cough no sputum no hemoptysis GI: No nausea no vomiting, no diarrhea, : No dysuria No hematuria Muscle skeletal: No joint pain,no back pain, no neck pain, Neurologic: No numbness no headache Psych: No stress Heme/endocrine: No bruising no bleeding Immunology: No lymphadenopathy (ALISON ROSE) Physical Exam Physical Exam General Appearance: well developed/nourished, no apparent distress, alert, awake Cardiovascular: regular rate/rhythm Comments: Well-developed well-nourished person in no acute distress HEENT: Normal EENT exam; PERRL, EOMI. HEAD is atraumatic. moist mucous membranes. Neck: Supple, normal range of motion Back: Nontender, no CVA tenderness. Full range of motion Cardiovascular: Tachycardic, regular rhythm no murmurs rubs Respiratory: No respiratory distress. Patient speaking in full complete sentences. Breath sounds clear to auscultation bilaterally: NO W/R/R Abdomen: Soft, nontender nondistended, no appreciable organomegaly. Normal bowel sounds. No rebound/guarding, Extremity: No edema, full range of motion of extremities, Neuro: Alert oriented x3, motor sensory normal,. There were no obvious focal neurologic abnormalities. Skin: No appreciable rash on exposed skin, skin is warm and dry. Psych: Mood and affect is normal, memory and judgment is normal. Core Measures ACS in differential dx? Yes Severe Sepsis Present: No Septic Shock Present: No (ALISON ROSE) Progress Differential Diagnosis: AMI, atrial fibrillation, CHF/pulm edema, costochondritis, musculoskeletal pain, pericarditis, pneumonia, pneumothorax, pulmonary embolism, unstable angina, V-fib/V-Tach Plan of Care: Orders Procedure Date/time Status EKG 12/07 1308 Active 12/07/2016 1:53:27 PM case discussed with Dr. Vo who evaluated the patient agrees with plan area patient's heart rate during previous visits has never been below 100 the patient offers no complaints this was a new visiting nurse today. I do not believe the patient requires any further workup at this time which she is in agreement with she has no change in her baseline shortness of breath, vitals are otherwise within normal limits no chest pain no pain with inspiration no cough no hemoptysis no fever no chills information was provided for follow-up with cardiology answered all her questions she feels comfortable this plan. (ALISON ROSE) Initial ED EKG: SINUS TACH AT 110, NO ACUTE st SEGMENT CHANGES NORMAL AXIS Prior EKG: unchanged (SAT AT 110; 11/21/16) (ALISON ROSE) Departure Departure Time of Disposition: 1352 Disposition: HOME OR SELF CARE Condition: Stable Clinical Impression Primary Impression: Tachycardia Referrals: KRYSTAL MCGUIRE APRN (PCP/Family) ELIN YOUSIF,MAIKOL Hutchison Additional Instructions: FOLLOW UP WITHJOAO PMD WELL MAMMALOG[facility] TEACHER DR [place]. RETURN WITH ANY CONCERNS Departure Forms: Customer Survey General Discharge Information (ALISON ROSE) PA/HEAD PORTER BAGGAGE Co-Sign Statement Statement: ED Attending supervision documentation- [x] I saw and evaluated the patient. I have also reviewed all the pertinent lab results and diagnostic results. I agree with the findings and the plan of care as documented in the PA's/HEAD PORTER BAGGAGE's documentation. [] I have reviewed the ED Record and agree with the PA's/HEAD PORTER BAGGAGE's documentation. [] Additions or exceptions (if any) to the PAs/HEAD PORTER BAGGAGE's note and plan are summarized below: [] (SUSY YOUSIF,KARELY Lowery) Critical Care Note Critical Care Note Critical Care Time: non-applicable (ALISON ROSE)
[2016-12-07 14:23] VITALS: BP 124/79
== END 2016-12-07 14:24 ==
LOC: ERH 12:58
DX: R00.0 Tachycardia, unspecified (principal)
CPT/HCPCS: 93005; 93010